=== PATIENT | female | born 1975 | race Caucasian/White ===

== ENCOUNTER 2016-07-11 21:56 | Emergency (ER) | payer OTHER ==
[~2016-07-11] VITALS: Ht 170.1 cm; Wt 86.2 kg
[~2016-07-11 21:56] MED LIST: AMARYL; AMARYL4 MG PO; BACTROBAN CREAM15 GM T; CELEXA10 MG PO; CIPRO500 MG PO; CIPROFLOXACIN500 MG PO; CLINDAMYCIN150 MG PO; DUONEB 3 MG/3 ML3 M1 INH; FLAGYL500 MG PO; HYDROCODONE BIT1 T11 PO; IBU-8800 MG PO; KEFLEX500 MG PO; LEVAQUIN750 M1 PO; LEVEMIR10 ML SC; LEVEMIR100 U/ML SC; METFORMIN500 MG PO; MOTRIN800 MG PO; NAPROSYN500 MG PO; NORCO 325 MG-51 TAB PO; NOVOLIN R100 U/ML; NOVOLOG10 ML SC; PERCOCET 325 MG1 TA5 PO; PERCOCET 325 MG1 TA6 PO; SEPTRA DS 800 M1 TA1 PO; SEPTRA DS1 TAB PO; TANZEUM30 MG SC; VALTREX1 GM PO; VICODIN 5/500 505 MG PO; VICODIN 500 MG-1 TAB PO; VISTARIL25 M2 PO; ZANTAC 150150 MG PO; ZOFRAN ODT4 MG SL
[2016-07-11 22:02] VITALS: BP 143/80
[2016-07-11 23:15] LABS: BASO % 0.3 % (0.0-1.0); EOS # 0.2 10*3/uL (0.0-0.4); EOS % 1.3 % (1.0-4.0); HEMATOCRIT 39.9 % (37.0-47.0); HEMOGLOBIN 13.4 g/dl (12.0-16.0); IG # 0.1 10*3/uL (0.0-0.1); LYMPH # 2.7 10*3/uL (1.3-4.4); MEAN CELL VOLUME 86.7 fl (81.0-99.0); MEAN CORPUSCULAR HGB 29.1 pg (27.0-31.0); MEAN CORPUSCULAR HGB CONC 33.6 g/dl (33.0-37.0); MEAN PLATELET VOLUME 9.4 fl (9.6-12.3); MONO # 0.6 10*3/uL (0.1-1.0); NEUT # 8.7 10*3/uL (2.3-7.9); NEUT % 70.9 % (47.0-73.0); PLATELET COUNT AUTOMATED 352 10*3/uL (130-400); RED CELL DISTRI WIDTH 13.2 % (0-14.5); WHITE BLOOD COUNT 12.3 10*3/uL (4.8-10.8)
[2016-07-11 23:27] LABS: BUN 12 mg/dl (7-24); C-REACTIVE PROTEIN 7.16 MG/DL (0-0.3); CARBON DIOXIDE 32 mmol/L (21-32); CHLORIDE 98 mmol/L (98-107); EST GLOM FILT AFRICAN AMERICAN > 60 ml/min; GLUCOSE 245 mg/dL (65-99); POTASSIUM 3.8 mmol/L (3.5-5.1); SODIUM 137 mmol/L (136-145)
[2016-07-11 23:31] LABS: HEMOGLOBIN A1c 11.4 % (4.8-5.6)
[2016-07-11] MEDS ORDERED: BACTRIM DS 8001 TA1 PO (23:51)
[2016-07-11] MEDS ORDERED: ULTRAM50 MG PO (23:51)
[2016-07-11] MEDS ORDERED: CLINDAMYCIN HC300 MG PO (23:51)
[2016-07-12] LABS: BILIRUBIN NEGATIVE (NEGATIVE); BLOOD TRACE-INTACT (NEGATIVE); CLARITY SL CLOUDY (CLEAR); COLOR YELLOW (YELLOW); GLUCOSE 3+ (NEGATIVE); KETONE TRACE (NEGATIVE); LEUKO ESTERASE NEGATIVE (NEGATIVE); NITRITE NEGATIVE (NEGATIVE); PH 5.5 (5.0-9.0); PROTEIN NEGATIVE (NEGATIVE)
[2016-07-12 00:33] LABS: EPITHELIAL CELLS 35-40
[2016-07-12 00:34] LABS: URINE REFLEX COMMENT YES (NO)
== END 2016-07-12 00:14 | disposition home or self-care (01) ==
LOC: ED 21:56
PROVIDERS: Emergency Medicine Emergency Medical Services
DX: L02.211 Cutaneous abscess of abdominal wall (principal); L03.311 Cellulitis of abdominal wall; E13.8 Other specified diabetes mellitus with unspecified complications; F17.200 Nicotine dependence, unspecified, uncomplicated; Z79.899 Other long term (current) drug therapy; Z79.4 Long term (current) use of insulin

== ENCOUNTER 2017-02-02 08:53 | Inpatient (IN) | payer OTHER ==
[~2017-02-02] VITALS: Ht 170.2 cm; Wt 94.1 kg
[~2017-02-02 08:53] MED LIST changes: +BACTRIM DS 8001 TA1 PO; +CLINDAMYCIN HC300 MG PO; -LEVEMIR10 ML SC; +LEVEMIR100 UNIT/1; +ULTRAM50 MG PO
[2017-02-02 08:54] VITALS: BP 156/80
[2017-02-02 09:32] LABS: BASO % 0.4 % (0.0-1.0); EOS # 0.2 10*3/uL (0.0-0.4); EOS % 1.9 % (1.0-4.0); HEMATOCRIT 41.5 % (37.0-47.0); HEMOGLOBIN 14.2 g/dl (12.0-16.0); LYMPH # 2.8 10*3/uL (1.3-4.4); LYMPH % 28.5 % (27.0-41.0); MEAN CELL VOLUME 84.9 fl (81.0-99.0); MEAN CORPUSCULAR HGB CONC 34.2 g/dl (33.0-37.0); MEAN PLATELET VOLUME 9.5 fl (9.6-12.3); MONO # 0.6 10*3/uL (0.1-1.0); MONO % 6.2 % (3.0-9.0); NEUT # 6.2 10*3/uL (2.3-7.9); NEUT % 62.8 % (47.0-73.0); PLATELET COUNT AUTOMATED 360 10*3/uL (130-400); RED BLOOD COUNT 4.89 10*6/uL (4.10-5.10); WHITE BLOOD COUNT 9.9 10*3/uL (4.8-10.8)
[2017-02-02 09:48] LABS: ALBUMIN 3.5 gm/dl (3.1-4.5); ALKALINE PHOSPHATASE 90 U/L (45-117); BETA-HCG, QUANT < 1.0 mIU/mL (1-3); BUN 10 mg/dl (7-24); CHLORIDE 105 mmol/L (98-107); CREATININE 0.66 mg/dL (0.55-1.02); LIPASE 75 U/L (73-393); POTASSIUM 3.3 mmol/L (3.5-5.1); SGOT/AST 13 IU/L (3-35); SGPT/ALT 24 U/L (12-78); SODIUM 140 mmol/L (136-145)
--- NOTE | 2017-02-02 10:15 | NUR ---
PT RESTING ELPIDIO, STATES THE PHENERGAN WORKED SLIGHTLY, STATES SHE IS STILL HAVING NAUSEA.
--- NOTE | 2017-02-02 10:46 | NUR ---
ADMINSTERED ZOFRAN PER ORDER FOR NAUSEA. PHENERGAN INEFFECTIVE.
[2017-02-02 12:24] LABS: BILIRUBIN NEGATIVE (NEGATIVE); BLOOD TRACE-INTACT (NEGATIVE); CLARITY CLOUDY (CLEAR); COLOR YELLOW (YELLOW); GLUCOSE 3+ (NEGATIVE); KETONE NEGATIVE (NEGATIVE); LEUKO ESTERASE NEGATIVE (NEGATIVE); NITRITE NEGATIVE (NEGATIVE); SPECIFIC GRAVITY 1.015 (1.005-1.030); UROBILINOGEN 0.2 E.U./dl (0.2-1.0)
[2017-02-02 12:35] LABS: BACTERIA 2+; EPITHELIAL CELLS 30-40
[2017-02-02 12:36] LABS: WBC 21-30 wbc/hpf (0-5)
[2017-02-02 13:00] VITALS: BP 129/67
--- NOTE | 2017-02-02 13:15 | NUR ---
MSADMTime: N A 38 year old F admitted to 4E under services of JULIANA NAQVI DO. Pt. arrived via bed from ER. Chief complaint: ABDOMINAL PAIN. BRIANNE RAPP
[2017-02-02 16:00] VITALS: BP 105/46
--- NOTE | 2017-02-02 16:10 | NUR ---
SPEECH PATHOLOGY Screening completed and speech pathology services are not indicated at this time. There are no acute receptive/expressive difficulties. No difficulty swallowing is reported. This dept. will remain available should future needs arise. ERICH PEREZ MSCCC-WOOD CARVING MACHINE OPERATOR
--- NOTE | 2017-02-02 16:25 | NUR ---
Dr. Eller in to [facility].
[2017-02-02 20:00] VITALS: BP 116/63
--- NOTE | 2017-02-02 20:00 | NUR ---
PATIENT ADVISED OF DIET STATUS OF CLEAR LIQUIDS. [facility] AND HAD 2 DIFFERENT TYPES OF CRACKERS IN ROOM THAT SHE HAD BEEN EATING. HAD ASKED THE PATIENT IF THE CRACKERS COULD BE PUT AWAY, OFF OF THE TRAY TABLE. PATIENT RESPONDED WITH A NO.
--- NOTE | 2017-02-02 21:55 | NUR ---
PATIENT STATES THAT SHE LAST VOMITED AT 0830 THIS AM. DENIES NAUSEA AT PRESENT TIME.
[2017-02-03] VITALS: BP 115/69
[2017-02-03 08:00] VITALS: BP 116/62
[2017-02-03 08:00] LABS: BASO % 0.5 % (0.0-1.0); EOS # 0.2 10*3/uL (0.0-0.4); EOS % 1.9 % (1.0-4.0); HEMATOCRIT 39.8 % (37.0-47.0); HEMOGLOBIN 13.2 g/dl (12.0-16.0); LYMPH # 2.4 10*3/uL (1.3-4.4); LYMPH % 31.1 % (27.0-41.0); MEAN CELL VOLUME 87.3 fl (81.0-99.0); MEAN CORPUSCULAR HGB 28.9 pg (27.0-31.0); MEAN CORPUSCULAR HGB CONC 33.2 g/dl (33.0-37.0); MEAN PLATELET VOLUME 9.9 fl (9.6-12.3); MONO # 0.5 10*3/uL (0.1-1.0); NEUT # 4.6 10*3/uL (2.3-7.9); PLATELET COUNT AUTOMATED 307 10*3/uL (130-400); RED BLOOD COUNT 4.56 10*6/uL (4.10-5.10); RED CELL DISTRI WIDTH 13.2 % (0-14.5); WHITE BLOOD COUNT 7.7 10*3/uL (4.8-10.8)
[2017-02-03 08:08] LABS: INTERNATIONAL NORM RATIO 0.9 (2.0-3.5)
[2017-02-03 08:19] LABS: ALBUMIN 2.8 gm/dl (3.1-4.5); ALKALINE PHOSPHATASE 78 U/L (45-117); BUN 7 mg/dl (7-24); CHLORIDE 107 mmol/L (98-107); POTASSIUM 3.5 mmol/L (3.5-5.1); SGOT/AST 15 IU/L (3-35); SGPT/ALT 27 U/L (12-78); SODIUM 140 mmol/L (136-145); TOTAL PROTEIN 6.5 gm/dL (6.4-8.2)
[2017-02-03 08:25] LABS: CHOLESTEROL 123 mg/dL (<200); CREATININE 0.61 mg/dL (0.55-1.02); FREE T4 1.09 ng/dl (0.76-1.46); HDL CHOLESTEROL 43 mg/dl (40-60); LDL CHOLESTEROL 65 mg/dL (9-159); PHOSPHOROUS 2.2 mg/dL (2.5-4.9); TRIGLYCERIDES 74 mg/dl (<150); VLDL CHOLESTEROL 15 mg/dL (6-40)
--- NOTE | 2017-02-03 08:30 | NUR ---
Patient resting quietly with no c/o discomfort. Respirations easy and regular. Vital signs stable. No overt distress. ETIENNE HARRIS R
--- NOTE | 2017-02-03 09:00 | NUR ---
Inverform Machine Operator in to talk to patient. Patient states lives at home with alone. There are few steps in the home. Physician: moshe damico [facility] [place] [facility]: none Patient's level of ADLs: INDEPENDENT Patient has working utilities: all working DME: no Follow-up physician's appointment after d/c: will be made by hospitalist nurse director upon discharge Does patient want to access PORTAL?: no Discharge plan discussed with patient, patient lives at home alone, is independent in adls and ambulation, patient states she will be going home when able and denies any home need. SUJATHA HAMILTON
[2017-02-03 09:45] LABS: VITAMIN D, 25-HYDROXY 30.7 ng/mL (30-100)
[2017-02-03] MEDS ORDERED: NEURONTIN400 MG PO (09:55)
[2017-02-03] MEDS ORDERED: LEVEMIR100 UNIT/1 SC (10:58)
[2017-02-03 12:00] VITALS: BP 123/70
--- NOTE | 2017-02-03 14:54 | NUR ---
Discharge instructions reviewed with patient/family. Patient receptive and verbalizes understanding. Follow-up care arranged. Written instructions given to patient/family. ETIENNE HARRIS
== END 2017-02-03 14:54 | disposition home or self-care (01) | DRG 391 ==
LOC: ED 08:53 → 4E 10:32 → EDHOLD 10:32 → 4E 11:56
PROVIDERS: Emergency Medicine; Hospitalist; ADMIT Internal Medicine
DX: K52.9 Noninfective gastroenteritis and colitis, unspecified (principal); E43 Unspecified severe protein-calorie malnutrition; E11.9 Type 2 diabetes mellitus without complications; E87.6 Hypokalemia; R00.0 Tachycardia, unspecified; Z79.4 Long term (current) use of insulin; Z79.84 Long term (current) use of oral hypoglycemic drugs; Z79.899 Other long term (current) drug therapy; Z90.49 Acquired absence of other specified parts of digestive tract; Z83.3 Family history of diabetes mellitus; Z80.3 Family history of malignant neoplasm of breast; Z82.49 Family history of ischemic heart disease and other diseases of the circulatory system; Z68.31 Body mass index [BMI] 31.0-31.9, adult

== ENCOUNTER 2017-04-22 21:49 | Emergency (ER) | payer OTHER ==
[~2017-04-22] VITALS: Ht 170.1 cm; Wt 86.2 kg
[~2017-04-22 21:49] MED LIST changes: +LEVEMIR100 UNIT/1 SC; +NEURONTIN400 MG PO
[2017-04-22 21:53] VITALS: BP 143/81
[2017-04-22] MEDS ORDERED: ZITHROMAX250 MG PO (23:51)
== END 2017-04-23 00:24 | disposition home or self-care (01) ==
LOC: ED 21:49
DX: J02.9 Acute pharyngitis, unspecified (principal); Z98.890 Other specified postprocedural states; Z90.49 Acquired absence of other specified parts of digestive tract; Z79.899 Other long term (current) drug therapy; Z79.4 Long term (current) use of insulin

== ENCOUNTER → 2017-06-03 | Outpatient (CLI) | payer OTHER ==
[~2017-06-03] MED LIST changes: +ZITHROMAX250 MG PO
[2017-06-03 08:50] LABS: BASO % 0.3 % (0.0-1.0); EOS # 0.2 10*3/uL (0.0-0.4); EOS % 2.7 % (1.0-4.0); HEMATOCRIT 43.5 % (37.0-47.0); HEMOGLOBIN 14.3 g/dl (12.0-16.0); LYMPH # 1.8 10*3/uL (1.3-4.4); LYMPH % 20.5 % (27.0-41.0); MEAN CELL VOLUME 86.1 fl (81.0-99.0); MEAN CORPUSCULAR HGB 28.3 pg (27.0-31.0); MEAN CORPUSCULAR HGB CONC 32.9 g/dl (33.0-37.0); MEAN PLATELET VOLUME 9.9 fl (9.6-12.3); MONO # 0.4 10*3/uL (0.1-1.0); NEUT # 6.2 10*3/uL (2.3-7.9); NEUT % 71.2 % (47.0-73.0); PLATELET COUNT AUTOMATED 316 10*3/uL (130-400); RED BLOOD COUNT 5.05 10*6/uL (4.10-5.10); WHITE BLOOD COUNT 8.7 10*3/uL (4.8-10.8)
[2017-06-03 09:01] LABS: ALBUMIN 3.5 gm/dl (3.1-4.5); ALKALINE PHOSPHATASE 99 U/L (45-117); BUN 12 mg/dl (7-24); CHLORIDE 103 mmol/L (98-107); CHOLESTEROL 182 mg/dL (<200); CREATININE 0.73 mg/dL (0.55-1.02); HDL CHOLESTEROL 50 mg/dl (40-60); LDL CHOLESTEROL 115 mg/dL (9-159); POTASSIUM 4.2 mmol/L (3.5-5.1); SGOT/AST 15 IU/L (3-35); SGPT/ALT 28 U/L (12-78); SODIUM 138 mmol/L (136-145); TOTAL PROTEIN 7.9 gm/dL (6.4-8.2); TRIGLYCERIDES 84 mg/dl (<150); VLDL CHOLESTEROL 17 mg/dL (6-40)
== END | disposition home or self-care (01) ==
LOC: LAB 08:16 → RAD 08:16
PROVIDERS: Nurse Practitioner Primary Care
DX: M79.642 Pain in left hand (principal); M79.645 Pain in left finger(s)

== ENCOUNTER → 2017-06-24 | Outpatient (CLI) | payer OTHER | END | disposition home or self-care (01) | LOC: MAMMO 07:34 | DX: Z12.31 Encounter for screening mammogram for malignant neoplasm of breast (principal) ==

== ENCOUNTER → 2018-07-08 | Outpatient (CLI) | payer OTHER ==
[~2018-07-08] MED LIST changes: +ADMELOG100 UNIT/1 SQ; +BASAG SOL SQ; +DOXYCYCLINE100 M3 PO; +FOLGARD TABLET1 EACH PO; +GLUCOPHAGE1000 MG PO; -METFORMIN500 MG PO; +TRULICITY1.5 MG/0.5 SC
== END | disposition home or self-care (01) ==
LOC: RAD 08:27
DX: K59.00 Constipation, unspecified (principal)

== ENCOUNTER → 2018-09-30 | Outpatient (CLI) | payer OTHER | END | disposition home or self-care (01) | LOC: US 11:19 | DX: R10.9 Unspecified abdominal pain (principal); E11.9 Type 2 diabetes mellitus without complications; Z90.49 Acquired absence of other specified parts of digestive tract ==

== ENCOUNTER → 2018-10-11 | Outpatient (CLI) | payer OTHER | END | disposition home or self-care (01) | LOC: MAMMO 01:11 | DX: Z12.31 Encounter for screening mammogram for malignant neoplasm of breast (principal) ==

== ENCOUNTER 2018-10-13 11:05 | Inpatient (IN) | payer OTHER ==
[~2018-10-13] VITALS: Ht 170.1 cm; Wt 94.0 kg
--- NOTE | ~2018-10-13 | PROC NOTE ---
[place], [place] PROCEDURE NOTE NAME[id number] UN[facility] #: [id number] ROOM: [facility] DOCTOR: FREDDY BARNARD MD BIRTHDATE: [birth year] DOS: 10/14/2018 PREOPERATIVE DIAGNOSIS: Anterior abdominal wall abscess. POSTOPERATIVE DIAGNOSIS: Anterior abdominal wall abscess. PROCEDURE: Incision and drainage of anterior abdominal wall abscess. SURGEON: Freddy Barnard MD SKILLED NURSING FACILITIES PROFESSIONAL: ARCHANA. ANESTHESIA: MAC with local (3 mL of 1% plain lidocaine). INDICATIONS: This is a 43-year-old lady admitted with an anterior abdominal wall abscess who is here for the above-mentioned procedure. The procedure and its complications were explained to the patient in detail preoperatively. Complications that were discussed included but were not limited to bleeding, infection, and damage to lying vital structures. She agreed to proceed. DESCRIPTION OF PROCEDURE: After identifying the patient, the patient was brought to the operating suite and placed in the supine position. After time-out procedure was called, IV sedation was administered by the anesthesia team and the parts were then painted and draped in the usual sterile fashion. Local anesthesia was infiltrated and an incision was made and deepened until the abscess cavity was entered. Specimen of pus was sent for culture and sensitivity. The abscess cavity was cleared of all the contents and saline was used for irrigation. Thereafter, the abscess cavity was packed with the help of 1/4 inch iodoform pack and a dressing was placed. The patient tolerated the procedure well and was brought back to the recovery room in stable fashion. There were no complications. Dr. Freddy Barnard, the attending surgeon, was present throughout the operating case. Freddy Barnard MD CM:PROCNOTE:PROCEDURE NOTE [id number] FREDDY BARNARD MD
[~2018-10-13 11:05] MED LIST changes: -ADMELOG100 UNIT/1 SQ; -BASAG SOL SQ; -DOXYCYCLINE100 M3 PO; -FOLGARD TABLET1 EACH PO; -TRULICITY1.5 MG/0.5 SC
[2018-10-13 11:06] VITALS: BP 123/66
[2018-10-13 11:46] LABS: BASO # 0.1 10*3/uL (0.0-0.1); BASO % 0.5 % (0.0-1.0); EOS # 0.3 10*3/uL (0.0-0.4); HEMATOCRIT 38.7 % (37.0-47.0); HEMOGLOBIN 12.3 g/dl (12.0-16.0); LYMPH % 19.2 % (27.0-41.0); MEAN CELL VOLUME 90.6 fl (81.0-99.0); MEAN CORPUSCULAR HGB 28.8 pg (27.0-31.0); MEAN CORPUSCULAR HGB CONC 31.8 g/dl (33.0-37.0); MEAN PLATELET VOLUME 9.2 fl (9.6-12.3); MONO # 0.6 10*3/uL (0.1-1.0); MONO % 6.1 % (3.0-9.0); NEUT # 7.4 10*3/uL (2.3-7.9); NEUT % 70.8 % (47.0-73.0); PLATELET COUNT AUTOMATED 440 10*3/uL (130-400); RED BLOOD COUNT 4.27 10*6/uL (4.10-5.10); RED CELL DISTRI WIDTH 13.7 % (0-14.5); WHITE BLOOD COUNT 10.4 10*3/uL (4.8-10.8)
[2018-10-13 12:01] LABS: ALBUMIN 3.1 gm/dl (3.1-4.5); ALKALINE PHOSPHATASE 88 U/L (45-117); BUN 13 mg/dl (7-24); CHLORIDE 104 mmol/L (98-107); LIPASE 69 U/L (73-393); POTASSIUM 4.7 mmol/L (3.5-5.1); SGOT/AST 12 IU/L (3-35); SGPT/ALT 22 U/L (12-78); SODIUM 141 mmol/L (136-145); TOTAL PROTEIN 7.6 gm/dL (6.4-8.2)
[2018-10-13 13:30] VITALS: BP 122/74
[2018-10-13 14:25] VITALS: BP 128/69
--- NOTE | 2018-10-13 14:25 | NUR ---
A 43, admitted to 5E, under the services of BHARATHI Yeager DO with a diagnosis of ABCESS, CELLULITIS. Chief complaint is ABCESS TO ABDOMEN X1 WK. Patient arrived via stretcher from ER. Monitor applied. Initial assessment completed. Vital signs taken and recorded. BHARATHI YEAGER DO notified of admission to the unit. Orders received. See assessment for past medical history, medications and allergies. Patient and/or family oriented to unit. [address] visitation policy reviewed. Clothing/patient valuable form completed. EDER VIEIRA
[2018-10-13 14:39] VITALS: BP 128/69
[2018-10-13] MEDS ORDERED: FOLGARD TABLET1 EACH PO (14:40)
[2018-10-13] MEDS ORDERED: ADMELOG100 UNIT/1 SQ (14:44)
[2018-10-13] MEDS ORDERED: BASAG SOL SQ (14:46)
[2018-10-13] MEDS ORDERED: TRULICITY1.5 MG/0.5 SC (14:51)
--- NOTE | 2018-10-13 14:53 | NUR ---
MEDS RECONCILED WITH MED CLAIM HX AND WITH PT AT BEDSIDE.
--- NOTE | 2018-10-13 15:32 | NUR ---
NEW CONSULT CALLED TO DR ROD. PATIENT TO BE NPO AFTER MIDNIGHT.
--- NOTE | 2018-10-13 16:15 | NUR ---
DR CASTILLO CALLED-PATIENT HOME MEDS UP TO DATE.
--- NOTE | 2018-10-13 16:50 | NUR ---
DR CASTILLO CALLED WITH CRITICAL LACTIC 3.3. PATIENT RECEIVING NS BOLUS AT THIS TIME. NO NEW ORDERS RECEIVED.
--- NOTE | 2018-10-13 17:08 | NUR ---
PATIENT REQUESTING PAIN MEDICATION FOR ABDOMINAL PAIN RATED 9/10 ON 0/10 SCALE. MORPHINE ADMINISTERED PRESCRIBED. WILL MONITOR FOR EFFECTIVENESS.
--- NOTE | 2018-10-13 18:04 | NUR ---
PATIENT STATES THAT MORPHINE WAS LITTLE EFFECTIVE ON HER ABDOMINAL PAIN. STILL RATES 7/10 ON 0/10 SCALE. NORCO ADMINISTERED PRESCRIBED. WILL MONITOR FOR EFFECTIVENESS.
--- NOTE | 2018-10-13 19:04 | NUR ---
PATIENT STATES THAT NORCO WAS EFFECTIVE FOR ABDOMINAL PAIN. WILL MONITOR.
[2018-10-13 20:00] VITALS: BP 112/69
[2018-10-13 20:41] LABS: BILIRUBIN NEGATIVE (NEGATIVE); BLOOD NEGATIVE (NEGATIVE); CLARITY CLEAR (CLEAR); COLOR YELLOW (YELLOW); GLUCOSE NEGATIVE (NEGATIVE); KETONE NEGATIVE (NEGATIVE); LEUKO ESTERASE NEGATIVE (NEGATIVE); NITRITE NEGATIVE (NEGATIVE); PH 5.5 (5.0-9.0); UROBILINOGEN 0.2 E.U./dl (0.2-1.0)
[2018-10-13 20:53] LABS: BACTERIA 1+
--- NOTE | 2018-10-13 22:30 | NUR ---
PATIENT MEDICATED FOR PAIN, DRESSING CHANGE PERFORMED, PURULENT DRAINAGE NOTED. PATIENT TOLERATED WELL.
[2018-10-14] VITALS (8 sets, daily range): BP systolic 93–131; BP diastolic 49–73
--- NOTE | 2018-10-14 06:03 | NUR ---
TAYLOR WARREN [id number] Please refer to the physician's history and physical for past medical history, comorbid conditions, and allergies. Diagnosis: ABCESS CELLULITIS Edwardo Score: 19,LOW OR NO RISK WOUND DESCRIPTIONS: Wound Number: 1 Location of the wound: mid abdomen to right right of umbilicus Type of wound: abscess Thickness: Full Size: 1.3cm x 2.6cm x 1.8cm Tunneling: none Undermining: none Sinus Tract: none Presence of Exudate: Serosanguineous Amount: Moderate Color: Brown, yellow, red Odor: None Periwound Skin Appearance: Erythema 5.0cm x 10.5cm Wound edges: approximated Pain (associated with wound): tender to touch How does patient state this happened? pt stated this started last wednesday and saw her pcp who gave her antibiotic and she stated it opened a couple days ago and started draining yellow, green and red. 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 Surface the patient is resting on: Isoflex SKIN PREVENTION RECOMMENDATION: 1. Pressure redistribution support surface as appropriate 2. Elevate heels 3. Remove boots/TEDS every shift and reapply 4. Head of bed 30 degrees as tolerated 5. Assess nutrition and hydration 6. Manage moisture 7. Avoid the use of containment devices while in bed 8. Use absorptive products on surfaces limit layers of linens on bed 9. Turn and reposition every 1-2 hours in bed and every 1 hour in chair as tolerated 10. Weight shifts every 15 minutes while up in chair 11. Offloading with pillows or device to keep heels elevated off bed 12. Monitor skin at least every shift 13. Inspect under medical devices twice a day WOUND TREATMENT RECOMMENDATIONS: Dressing change: Cleanse mid abdomen to right right of umbilicus with nss and apply dsd daily and prn for soiling. Await post op wound care orders after surgery today with Dr. Barnard. Patient stated that her mother is able to care for this area once she is discharged. She stated if she needs a follow up appointment if she gets surgery she will follow up when discharged.
[2018-10-14 06:20] LABS: BASO # 0.1 10*3/uL (0.0-0.1); BASO % 0.4 % (0.0-1.0); EOS # 0.3 10*3/uL (0.0-0.4); EOS % 2.4 % (1.0-4.0); HEMATOCRIT 38.2 % (37.0-47.0); HEMOGLOBIN 12.1 g/dl (12.0-16.0); LYMPH # 3.2 10*3/uL (1.3-4.4); MEAN CELL VOLUME 92.5 fl (81.0-99.0); MEAN CORPUSCULAR HGB 29.3 pg (27.0-31.0); MEAN CORPUSCULAR HGB CONC 31.7 g/dl (33.0-37.0); MEAN PLATELET VOLUME 9.4 fl (9.6-12.3); MONO # 0.8 10*3/uL (0.1-1.0); MONO % 6.8 % (3.0-9.0); PLATELET COUNT AUTOMATED 473 10*3/uL (130-400); RED BLOOD COUNT 4.13 10*6/uL (4.10-5.10); RED CELL DISTRI WIDTH 13.7 % (0-14.5); WHITE BLOOD COUNT 11.3 10*3/uL (4.8-10.8)
[2018-10-14 06:25] LABS: ALBUMIN 2.8 gm/dl (3.1-4.5); ALKALINE PHOSPHATASE 86 U/L (45-117); BUN 10 mg/dl (7-24); CHLORIDE 106 mmol/L (98-107); CREATININE 0.64 mg/dL (0.55-1.02); PHOSPHOROUS 4.2 mg/dL (2.5-4.9); SGOT/AST 14 IU/L (3-35); SGPT/ALT 21 U/L (12-78); SODIUM 143 mmol/L (136-145)
[2018-10-14 06:27] LABS: POTASSIUM 3.6 mmol/L (3.5-5.1)
--- NOTE | 2018-10-14 08:08 | NUR ---
Dr. Herrera notified of wound care recommendations.
--- NOTE | 2018-10-14 10:17 | NUR ---
1000 MEDS HELD DUE TO NPO STATUS.
--- NOTE | 2018-10-14 11:18 | NUR ---
TO SURGERY FOR AN I&D.
--- NOTE | 2018-10-14 13:28 | NUR ---
MORPHINE 2MG IV GIVEN PER PATIENT REQUEST FOR ABDOMINAL PAIN.
--- NOTE | 2018-10-14 14:04 | NUR ---
Conventions Reservationist in to talk to patient. Patient states lives at HOME with SONS. There are NO steps in the home. Physician: PIETER PASCAL Pharmacy: [facility] health services: NONE Patient's level of ADLs: INDEPENDENT Patient has working utilities: YES DME: NONE Follow-up physician's appointment after d/c: WILL BE MADE BY HOSPITALIST NURSE DIRECTOR ON DISCHARGE Does patient want to access PORTAL?: NO Discharge plan PT STATES SHE LIVES AT HOME WITH HER SONS AND IS INDEPENDENT IN HER CARE. DENIES SHE WILL HAVE NEEDS ON DISCHARGE. WILL CONTINUE TO FOLLOW. STATES HE WILL HAVE A RIDE HOME.. CHRIS SAUCEDO
--- NOTE | 2018-10-14 14:30 | NUR ---
PATIENT SITTING UP IN BED EATING. NO FURTHER COMPLAINTS OF PAIN. MORPHINE EFFECTIVE.
--- NOTE | 2018-10-14 20:03 | NUR ---
PT C/O ABDOMEN PAIN 8/10 MORPHINE GIVEN ORDERED. SEE EMAR
--- NOTE | 2018-10-14 23:24 | NUR ---
PT C/O OF ABDOMEN PAIN 08/22. NORCO GIVEN ORDERED. SEE EMAR
--- NOTE | 2018-10-14 23:25 | NUR ---
MORPHINE EFFECTIVE PER PT.
[2018-10-15] VITALS: BP 126/63
--- NOTE | 2018-10-15 00:25 | NUR ---
NORCO EFFECTIVE PER PT
--- NOTE | 2018-10-15 03:11 | NUR ---
24 HR chart check completed.
--- NOTE | 2018-10-15 03:47 | NUR ---
TYLENOL GIVEN FOR 100.2 TEMP AT THIS TIME. SEE EMAR
--- NOTE | 2018-10-15 04:06 | NUR ---
24 HR chart check completed.
--- NOTE | 2018-10-15 05:36 | NUR ---
TEMP 98.0. TYLENOL EFFECTIVE.
--- NOTE | 2018-10-15 06:19 | NUR ---
pt c/o abdomen pain 8/10 norco given at this time.
--- NOTE | 2018-10-15 06:36 | NUR ---
PT. IN CONTACT ISOLATION FOR MRSA WOUND.
--- NOTE | 2018-10-15 06:45 | NUR ---
NORCO EFFECTIVE. PT OBSERVED RESTING IN BED WITH EYES CLOSED.
[2018-10-15 07:11] LABS: BASO % 0.4 % (0.0-1.0); EOS # 0.2 10*3/uL (0.0-0.4); EOS % 2.1 % (1.0-4.0); HEMATOCRIT 34.8 % (37.0-47.0); HEMOGLOBIN 11.3 g/dl (12.0-16.0); LYMPH # 3.2 10*3/uL (1.3-4.4); LYMPH % 30.4 % (27.0-41.0); MEAN CELL VOLUME 90.6 fl (81.0-99.0); MEAN CORPUSCULAR HGB 29.4 pg (27.0-31.0); MEAN CORPUSCULAR HGB CONC 32.5 g/dl (33.0-37.0); MONO # 0.6 10*3/uL (0.1-1.0); MONO % 6.1 % (3.0-9.0); NEUT # 6.3 10*3/uL (2.3-7.9); NEUT % 60.7 % (47.0-73.0); PLATELET COUNT AUTOMATED 421 10*3/uL (130-400); RED BLOOD COUNT 3.84 10*6/uL (4.10-5.10); RED CELL DISTRI WIDTH 13.7 % (0-14.5); WHITE BLOOD COUNT 10.5 10*3/uL (4.8-10.8)
[2018-10-15 07:30] LABS: BUN 7 mg/dl (7-24); CHLORIDE 108 mmol/L (98-107); CREATININE 0.73 mg/dL (0.55-1.02); SODIUM 142 mmol/L (136-145)
[2018-10-15 08:00] VITALS: BP 131/70
--- NOTE | 2018-10-15 10:07 | NUR ---
PATIENT MEDICATED WITH PRN IV MORPHINE FOR ABDOMINAL WOUND PAIN.
--- NOTE | 2018-10-15 10:18 | NUR ---
REQUESTED PAIN MEDICATION ORDERED . RATES PAIN SHARP IN ABDOMINAL AREA. 08/22
--- NOTE | 2018-10-15 11:05 | NUR ---
RESTING IN BED. MEDICATION APPEARS EFFECTIVE
--- NOTE | 2018-10-15 11:13 | NUR ---
PRN IV MORPHINE EFFECTIVE; PATIENT SLEEPING W/ NO S/S PAIN.
[2018-10-15 12:00] VITALS: BP 128/64
[2018-10-15 12:05] LABS: ACID FAST SPEC PROCESSING Tissue Grinding (.)
--- NOTE | 2018-10-15 13:55 | NUR ---
MEDICATED WITH PRN PO NORCO FOR ABDOMINAL INCISION PAIN.
--- NOTE | 2018-10-15 14:45 | NUR ---
PRN PO NORCO EFFECTIVE, PER PATIENT.
[2018-10-15 16:00] VITALS: BP 130/75
--- NOTE | 2018-10-15 18:11 | NUR ---
MEDICATED WITH PRN PO NORCO FOR ABDOMINAL INCISION PAIN.
[2018-10-15 20:00] VITALS: BP 122/73
--- NOTE | 2018-10-15 20:00 | NUR ---
RESTING IN BED WITH NO DISTRESS NOTED. RESPIRATIONS EASY. LUNGS DIMINISHED, CLEAR. PULSE OX 93% RA. DRESSING DRY AN INTACT TO ABD. OFFERED AND EDUCATED REGARDING TEDS, DECLINED. CALL LIGHT WITHIN REACH. NO VOICED COMPLAINTS
--- NOTE | 2018-10-15 20:30 | NUR ---
24 HR chart check completed.
--- NOTE | 2018-10-15 21:28 | NUR ---
REQUESTED AND RECEIVED MORPHINE AND RESTORIL PER PRN ORDER TO ASSIST WITH PAIN TO ABD INCISION RATING AN 8 AND TO ASSIST WITH SLEEP. CALL LIGHT WITHIN REACH. WILL MONITOR FOR EFFECTIVENESS
--- NOTE | 2018-10-15 21:55 | NUR ---
DULCOLAX ADMINISTERED FOR NO BM X 2 DAYS.
--- NOTE | 2018-10-15 22:00 | NUR ---
BSG 158, DECLINED COVERAGE. WILL RECHECK IN AM
--- NOTE | 2018-10-15 23:00 | NUR ---
EARLIER MEDS APPEAR EFFECTIVE. RESTING WITH EYES CLOSED. RESPIRATIONS EASY. CALL LIGHT WITHIN REACH
[2018-10-16 00:01] VITALS: BP 121/67
--- NOTE | 2018-10-16 00:30 | NUR ---
SLEEPING. RESPIRATIONS EASY. VSS. CALL LIGHT WITHIN REACH
[2018-10-16 05:52] LABS: BASO # 0.1 10*3/uL (0.0-0.1); BASO % 0.6 % (0.0-1.0); EOS # 0.3 10*3/uL (0.0-0.4); EOS % 3.8 % (1.0-4.0); HEMATOCRIT 36.2 % (37.0-47.0); HEMOGLOBIN 11.6 g/dl (12.0-16.0); LYMPH # 2.9 10*3/uL (1.3-4.4); LYMPH % 32.6 % (27.0-41.0); MEAN CELL VOLUME 90.7 fl (81.0-99.0); MEAN CORPUSCULAR HGB 29.1 pg (27.0-31.0); MEAN PLATELET VOLUME 9.2 fl (9.6-12.3); MONO # 0.6 10*3/uL (0.1-1.0); MONO % 6.1 % (3.0-9.0); NEUT # 5.1 10*3/uL (2.3-7.9); NEUT % 56.3 % (47.0-73.0); PLATELET COUNT AUTOMATED 393 10*3/uL (130-400); RED BLOOD COUNT 3.99 10*6/uL (4.10-5.10); RED CELL DISTRI WIDTH 13.3 % (0-14.5)
[2018-10-16 06:03] LABS: BUN 8 mg/dl (7-24); CHLORIDE 104 mmol/L (98-107); POTASSIUM 4.6 mmol/L (3.5-5.1); SODIUM 140 mmol/L (136-145)
--- NOTE | 2018-10-16 06:38 | NUR ---
REQUESTED AND RECEIVED NORCO PER PRN ORDER FOR COMPLAINTS OF PAIN RATING A 5 TO ABD INCISION. CALL LIGHT WITHIN REACH. WILL MONITOR FOR EFFECTIVENESS
[2018-10-16 08:00] VITALS: BP 119/66
--- NOTE | 2018-10-16 09:22 | NUR ---
MEDICATED WITH PRN PO DULCOLAX FOR CONSTIPATION
[2018-10-16] MEDS ORDERED: DOXYCYCLINE100 M3 PO (09:41)
[2018-10-16 12:00] VITALS: BP 109/56
--- NOTE | 2018-10-16 13:17 | NUR ---
Discharge instructions reviewed with patient/family. Patient receptive and verbalizes understanding. Follow-up care arranged. Written instructions given to patient/family. JOSETTE MEHTA
--- NOTE | 2018-10-16 13:20 | NUR ---
PATIENT DISCHARGED TO FRONT LOBBY BY WHEELCHAIR, ACCOMPANIED BY [facility], FOR TRANSPORT HOME BY PRIVATE VEHICLE WITH FAMILY.
== END 2018-10-16 13:20 | disposition home or self-care (01) | DRG 580 ==
LOC: ED 11:05 → EDHOLD 13:37 → 5E 13:37
PROVIDERS: Internal Medicine; Physician Assistant; Student in an Organized Health Care Education/Training Program; Surgery; ADMIT Internal Medicine
PROC: 0W9F0ZZ Drainage of Abdominal Wall, Open Approach (ICD-10-PCS; principal; 2018-10-14)
DX: L02.211 Cutaneous abscess of abdominal wall (principal); E87.2 Acidosis; E66.9 Obesity, unspecified; L03.316 Cellulitis of umbilicus; E11.65 Type 2 diabetes mellitus with hyperglycemia; F41.9 Anxiety disorder, unspecified; B95.62 Methicillin resistant Staphylococcus aureus infection as the cause of diseases classified elsewhere; F32.9 Major depressive disorder, single episode, unspecified; E55.9 Vitamin D deficiency, unspecified; D64.9 Anemia, unspecified; Z86.14 Personal history of Methicillin resistant Staphylococcus aureus infection; Z90.49 Acquired absence of other specified parts of digestive tract; Z98.891 History of uterine scar from previous surgery; Z82.49 Family history of ischemic heart disease and other diseases of the circulatory system; Z83.3 Family history of diabetes mellitus; Z80.3 Family history of malignant neoplasm of breast; Z79.899 Other long term (current) drug therapy; Z79.4 Long term (current) use of insulin; Z68.32 Body mass index [BMI] 32.0-32.9, adult

== ENCOUNTER 2018-11-12 18:44 | Emergency (ER) | payer OTHER ==
[~2018-11-12] VITALS: Ht 170.1 cm; Wt 86.2 kg
[~2018-11-12 18:44] MED LIST changes: +ADMELOG100 UNIT/1 SQ; +BASAG SOL SQ; +DOXYCYCLINE100 M3 PO; +FOLGARD TABLET1 EACH PO; +TRULICITY1.5 MG/0.5 SC
[2018-11-12 18:46] VITALS: BP 134/70
== END 2018-11-12 19:52 | disposition home or self-care (01) ==
LOC: ED 18:44
DX: S93.402A Sprain of unspecified ligament of left ankle, initial encounter (principal); Z79.2 Long term (current) use of antibiotics; Z79.4 Long term (current) use of insulin; Z90.49 Acquired absence of other specified parts of digestive tract; Z79.899 Other long term (current) drug therapy; X50.1XXA Overexertion from prolonged static or awkward postures, initial encounter; Y93.89 Activity, other specified; Y92.488 Other paved roadways as the place of occurrence of the external cause; Y99.8 Other external cause status

== ENCOUNTER 2018-12-25 13:12 | Inpatient (IN) | payer OTHER ==
[~2018-12-25] VITALS: Ht 170.1 cm; Wt 91.3 kg
[2018-12-25 13:15] VITALS: BP 148/82
--- NOTE | 2018-12-25 13:30 | NUR ---
MUCKER OPERATOR TIARA IN PT'S ROOM APPLYING DRESSING TO RIGHT SECOND TOE.
[2018-12-25 13:51] LABS: BASO % 0.2 % (0.0-1.0); EOS # 0.1 10*3/uL (0.0-0.4); EOS % 0.5 % (1.0-4.0); HEMATOCRIT 36.9 % (37.0-47.0); LYMPH # 1.5 10*3/uL (1.3-4.4); LYMPH % 10.7 % (27.0-41.0); MEAN CELL VOLUME 90.2 fl (81.0-99.0); MEAN CORPUSCULAR HGB 29.3 pg (27.0-31.0); MEAN CORPUSCULAR HGB CONC 32.5 g/dl (33.0-37.0); MEAN PLATELET VOLUME 9.2 fl (9.6-12.3); MONO # 0.7 10*3/uL (0.1-1.0); MONO % 5.2 % (3.0-9.0); NEUT # 11.7 10*3/uL (2.3-7.9); NEUT % 82.8 % (47.0-73.0); PLATELET COUNT AUTOMATED 436 10*3/uL (130-400); RED BLOOD COUNT 4.09 10*6/uL (4.10-5.10); RED CELL DISTRI WIDTH 13.1 % (0-14.5); WHITE BLOOD COUNT 14.2 10*3/uL (4.8-10.8)
[2018-12-25 14:07] LABS: ALBUMIN 2.9 gm/dl (3.1-4.5); ALKALINE PHOSPHATASE 120 U/L (45-117); BUN 10 mg/dl (7-24); CHLORIDE 99 mmol/L (98-107); CREATININE 0.88 mg/dL (0.55-1.02); POTASSIUM 4.2 mmol/L (3.5-5.1); SGOT/AST 16 IU/L (3-35); SGPT/ALT 21 U/L (12-78); SODIUM 134 mmol/L (136-145); TOTAL PROTEIN 8.1 gm/dL (6.4-8.2)
--- NOTE | 2018-12-25 14:12 | NUR ---
CRITICAL LACTIC RESULT 3.7. LATRICE FARLEY AUDITING SPECIALIST NOTIFIED.
[2018-12-25 14:21] VITALS: BP 118/67
[2018-12-25 15:14] VITALS: BP 118/67
[2018-12-25 15:35] VITALS: BP 109/60
--- NOTE | 2018-12-25 15:35 | NUR ---
A 43, admitted to 5E, under the services of TRICIA Muñoz DO with a diagnosis of CELLULITIS, SEPSIS, OSTEOMYELITIS OF TOE. Chief complaint is FOOT PAIN. Patient arrived via ambulatory from ER. Monitor applied. Initial assessment completed. Vital signs taken and recorded. TRICIA MUÑOZ DO notified of admission to the unit. Orders received. See assessment for past medical history, medications and allergies. Patient and/or family oriented to unit. [facility] visitation policy reviewed. Clothing/patient valuable form completed. SCAR BRINK
--- NOTE | 2018-12-25 15:56 | NUR ---
DR. MATHUR'S RESIDENT NOTIFIED OF CONSULT
--- NOTE | 2018-12-25 15:58 | NUR ---
DR. WAGGONER'S ANSWERING SERVICE NOTIFIED OF CONSULT
[2018-12-25 16:00] VITALS: BP 109/60
[2018-12-25] MEDS ORDERED: ADMELOG100 UNIT/1 SQ (16:07)
[2018-12-25] MEDS ORDERED: VITAMIN D-32000 UNI1 PO (16:08)
[2018-12-25] MEDS ORDERED: OZEMPIC0.25 MG/01 SQ (16:08)
[2018-12-25 16:44] LABS: BILIRUBIN NEGATIVE (NEGATIVE); BLOOD NEGATIVE (NEGATIVE); CLARITY CLEAR (CLEAR); COLOR YELLOW (YELLOW); GLUCOSE 3+ (NEGATIVE); KETONE NEGATIVE (NEGATIVE); LEUKO ESTERASE NEGATIVE (NEGATIVE); NITRITE NEGATIVE (NEGATIVE); PH 5.5 (5.0-9.0)
[2018-12-25 16:49] LABS: EPITHELIAL CELLS 41-50
[2018-12-25 16:50] LABS: BACTERIA TRACE; WBC 16-20 wbc/hpf (0-5)
--- NOTE | 2018-12-25 19:10 | NUR ---
IV MORPHINE ADMINISTERED PER PRN ORDER FOR C/O PAIN IN R FOOT RATED 9/10. WILL MONITOR EFFECTIVENESS. CALL LIGHT IN REACH.
[2018-12-25 20:00] VITALS: BP 106/58; BP 94/45
[2018-12-26] VITALS (8 sets, daily range): BP systolic 100–156; BP diastolic 40–80
[2018-12-26 07:23] LABS: BASO % 0.4 % (0.0-1.0); EOS # 0.2 10*3/uL (0.0-0.4); HEMATOCRIT 32.6 % (37.0-47.0); HEMOGLOBIN 10.4 g/dl (12.0-16.0); LYMPH # 2.4 10*3/uL (1.3-4.4); LYMPH % 21.4 % (27.0-41.0); MEAN CELL VOLUME 91.3 fl (81.0-99.0); MEAN CORPUSCULAR HGB 29.1 pg (27.0-31.0); MEAN CORPUSCULAR HGB CONC 31.9 g/dl (33.0-37.0); MEAN PLATELET VOLUME 9.6 fl (9.6-12.3); MONO # 0.7 10*3/uL (0.1-1.0); MONO % 5.8 % (3.0-9.0); NEUT # 7.8 10*3/uL (2.3-7.9); NEUT % 70.1 % (47.0-73.0); PLATELET COUNT AUTOMATED 385 10*3/uL (130-400); RED BLOOD COUNT 3.57 10*6/uL (4.10-5.10); RED CELL DISTRI WIDTH 13.3 % (0-14.5); WHITE BLOOD COUNT 11.2 10*3/uL (4.8-10.8)
[2018-12-26 07:46] LABS: BUN 8 mg/dl (7-24); CHLORIDE 109 mmol/L (98-107); CREATININE 0.63 mg/dL (0.55-1.02); POTASSIUM 3.9 mmol/L (3.5-5.1); SODIUM 143 mmol/L (136-145)
--- NOTE | 2018-12-26 08:05 | NUR ---
TAYLOR WARREN [id number] Please refer to the physician's history and physical for past medical history, comorbid conditions, and allergies. Diagnosis: CELLULITIS, SEPSIS OSTEOMYCLITIS OF TOE Edwardo Score: 20,LOW OR NO RISK WOUND DESCRIPTIONS: DRESSING TO RIGHT FOOT CLEAN DRY AND INTACT. NO STRIKE THROUGH NOTED. PATIENT DENIED PAIN AT TIME OF ASSESSMENT. PATIENT IS HAVING SURGERY ON RIGHT 2ND TOE TODAY BY DR. YANES. PATIENT STATES THAT SHE WOULD LIKE TO FOLLOW UP IN THE WOUND CARE CENTER WHEN DISCHARGED. Surface the patient is resting on: Isoflex SKIN PREVENTION RECOMMENDATION: 1. Pressure redistribution support surface as appropriate 2. Elevate heels 3. Remove boots/TEDS every shift and reapply 4. Head of bed 30 degrees as tolerated 5. Assess nutrition and hydration 6. Manage moisture 7. Avoid the use of containment devices while in bed 8. Use absorptive products on surfaces limit layers of linens on bed 9. Turn and reposition every 1-2 hours in bed and every 1 hour in chair as tolerated 10. Weight shifts every 15 minutes while up in chair 11. Offloading with pillows or device to keep heels elevated off bed 12. Monitor skin at least every shift 13. Inspect under medical devices twice a day WOUND TREATMENT RECOMMENDATIONS: AWAIT POST OP ORDERS FROM PODIATRY.
--- NOTE | 2018-12-26 08:58 | NUR ---
Spoke with Dr. Pruett regarding wound care orders he stated he will put them in after surgery.
--- NOTE | 2018-12-26 08:59 | NUR ---
PHYSICAL THERAPY Nursing screen received and chart reviewed. Physical therapy referral received. Thank you. Andressa Man,PT,DPT.
--- NOTE | 2018-12-26 09:00 | NUR ---
UPON ENTERING ROOM, PATIENT AWAKE, ALERT AND ORIENTED. NO STATED COMPLAINTS. PT DENIES PAIN AT THIS TIME. DRESSING IS DRY AND INTACT. RESPIRATIONS ARE EASY AND REGULAR. SO S/S OF DISTRESS OR SOB. BED IN LOWEST LOCKED POSITION AND CALL LIGHT WITHIN REACH. WILL CONTINUE TO MONITOR.
--- NOTE | 2018-12-26 09:42 | NUR ---
Occupational therapy orders received and chart reviewed. Patient stating she is not feeling up to an OT/PT evaluation at this time. Per discussion with patient, she is going to surgery at noon. Patient does "not want to do anything because of my foot" at this time. Will follow up with patient tomorrow for completion of OT evaluation. Thank you. Iwona Oleary, OTR/L
--- NOTE | 2018-12-26 09:42 | NUR ---
PHYSICAL THERAPY Physical therapy evaluation offered. Patient reports that she is not feeling up to moving around right now because of her foot, and she is scheduled for surgery today around noon. Will return at a later date to complete PT evaluation. Thank you. Andressa Man,PT,DPT.
--- NOTE | 2018-12-26 10:56 | NUR ---
NPO STATUS MAINTAINED. DENIES NEED FOR PAIN MEDS AT THIS TIME. NO S/S OF DISTRES OR SOB. DRESSING DRY/INTACT. BED IN LOWEST LOCKED POSITION.
--- NOTE | 2018-12-26 11:00 | NUR ---
PT OFF OF FLOOR FOR SURGERY.
--- NOTE | 2018-12-26 11:47 | NUR ---
Directory Compiler in to talk to patient. Patient states lives at HOME with BOYFRIEND. There are NO steps in the home. Physician: PIETER PASCAL Pharmacy: [facility] health services: NONE Patient's level of ADLs: INDEPENDENT Patient has working utilities: YES DME: [facility] Follow-up physician's appointment after d/c: WILL BE MADE BY HOSPITALIST NURSE DIRECTOR ON DISCHARGE Does patient want to access PORTAL?: NO Discharge plan PT LIVES AT HOME AND IS INDEPENDENT IN HER CARE. DISCHARGE PLAN IS TO RETURN HOME WHEN MEDICALLY STABLE. PT WAS TALKING ON PHONE ON VISIT SO DID NOT HAVE A CHANCE TO TALK TO HER ABOUT POSSIBLILITY OF [facility] IV ANTIBIOTICS. WILL RETURN TO TALK WITH PT LATER. WILL CONTINUE TO FOLLOW. WILL HAVE A RIDE HOME PER PT.. CHRIS SAUCEDO
--- NOTE | 2018-12-26 12:36 | NUR ---
REPORT RECIEVED FROM SURGERY.
--- NOTE | 2018-12-26 20:15 | NUR ---
IV MORPHINE ADMINISTERED SLOWLY PER PRN ORDER FOR C/O R FOOT PAIN RATED 7/10. WILL MONITOR EFFECTIVENESS. CALL LIGHT IN REACH.
--- NOTE | 2018-12-26 21:23 | NUR ---
EARLIER MORPHINE EFFECTIVE PER PT. WILL MONITOR. CALL LIGHT IN REACH.
--- NOTE | 2018-12-26 23:43 | NUR ---
PT C/O BREAKTHROUGH PAIN. TOO SOON FOR MORPHINE. AWARE. NEW ORDER RECEIVED FOR PO NORCO 5/325 Q4H PRN FOR BREAKTHROUGH PAIN.
[2018-12-27] VITALS: BP 106/49
--- NOTE | 2018-12-27 00:30 | NUR ---
PT MEDICATED WITH IV MORPHINE FOR C/O PAIN IN R FOOT RATED 10/10. PO NORCO JUST RECENTLY PROFILED FROM [facility]. PT REQUESTING IV MORPHINE INSTEAD. WILL MONITOR EFFECTIVENESS. CALL LIGHT LEFT IN REACH.
[2018-12-27 02:00] VITALS: BP 100/50
--- NOTE | 2018-12-27 02:09 | NUR ---
PT STATES EARLIER MORPHINE HELPED SOME. STILL RATING PAIN 5/10. PO NORCO GIVEN PER PRN ORDER. WILL MONITOR. CALL LIGHT LEFT IN REACH.
--- NOTE | 2018-12-27 05:15 | NUR ---
IV MORPHINE ADMINISTERED PER PRN ORDER FOR C/O PAIN IN R FOOT RATED 5/10. WILL MONITOR. CALL LIGHT IN REACH.
--- NOTE | 2018-12-27 05:59 | NUR ---
EARLIER MEDICATION EFFECTIVE PER PT. WILL MONITOR. CALL LIGHT IN REACH.
[2018-12-27 06:29] LABS: BASO # 0.1 10*3/uL (0.0-0.1); BASO % 0.4 % (0.0-1.0); EOS # 0.2 10*3/uL (0.0-0.4); EOS % 1.5 % (1.0-4.0); HEMATOCRIT 30.1 % (37.0-47.0); HEMOGLOBIN 9.6 g/dl (12.0-16.0); LYMPH # 2.4 10*3/uL (1.3-4.4); LYMPH % 20.4 % (27.0-41.0); MEAN CELL VOLUME 91.8 fl (81.0-99.0); MEAN CORPUSCULAR HGB 29.3 pg (27.0-31.0); MEAN CORPUSCULAR HGB CONC 31.9 g/dl (33.0-37.0); MEAN PLATELET VOLUME 9.2 fl (9.6-12.3); MONO # 0.7 10*3/uL (0.1-1.0); MONO % 6.1 % (3.0-9.0); NEUT # 8.4 10*3/uL (2.3-7.9); NEUT % 71.1 % (47.0-73.0); PLATELET COUNT AUTOMATED 386 10*3/uL (130-400); RED BLOOD COUNT 3.28 10*6/uL (4.10-5.10); RED CELL DISTRI WIDTH 13.3 % (0-14.5); WHITE BLOOD COUNT 11.8 10*3/uL (4.8-10.8)
[2018-12-27 06:58] LABS: BUN 7 mg/dl (7-24); CHLORIDE 106 mmol/L (98-107); CREATININE 0.61 mg/dL (0.55-1.02); POTASSIUM 3.8 mmol/L (3.5-5.1); SODIUM 140 mmol/L (136-145)
[2018-12-27 08:00] VITALS: BP 113/60
--- NOTE | 2018-12-27 08:00 | NUR ---
Patient resting quietly with no c/o discomfort. Respirations easy and regular. Vital signs stable. No overt distress. EDER VIEIRA
--- NOTE | 2018-12-27 08:41 | NUR ---
24 HR chart check completed.
--- NOTE | 2018-12-27 10:30 | NUR ---
NORCO GIVEN PO FOR PAIN PER PATIENT REQUEST. PAIN IS RATED 5/10.
--- NOTE | 2018-12-27 10:58 | NUR ---
OTR approached podiatry resident requesting weight bearing status prior to evaluation. Doctor will send weight bearing orders when he is able. Cherelle Thomason OTR/wilfredo
--- NOTE | 2018-12-27 11:31 | NUR ---
RICKSHAW DRIVER TALKED TO MOTHER AND PT ABOUT POSSIBILITY OF IV ANTIBIOTICS FOR SHELLFISH CHECKER IF CULTURES ARE POSITIVE. PT AND MOTHER STATES THEY WOULD BE ABLE TO DO THEM AT HOME. THEY WERE GIVEN OPTIONS FOR HOME HEALTH AND CHOSE [facility]. WILL CONTINUE TO FOLLOW AND SEND REFERRALS IF NEEDED ONCE CULTURE IS BACK.
[2018-12-27 12:00] VITALS: BP 134/68
--- NOTE | 2018-12-27 12:00 | NUR ---
MEDICATION EFFECTIVE FOR PAIN.
[2018-12-27 16:00] VITALS: BP 113/63
[2018-12-27] MEDS ORDERED: OZEMPIC0.25 MG/01 SQ (16:32)
--- NOTE | 2018-12-27 16:38 | NUR ---
NORCO GIVEN FOR THROBBING PAIN TO RT FOOT RATED 7/10. CALL LIGHT IN REACH. FAMILY AT BEDSIDE. ISOLATION MAINTAINED. WILL MONITOR.
--- NOTE | 2018-12-27 17:56 | NUR ---
NOTED PUFFINESS TO HANDS AND FACE PER PT. IVF INFUSING AT 125CC/HER BAG #5. NOTIFIED AND REQUESTED IVF BE STOPPED. SAID HE WOULD LOOK AT HER CHART.
--- NOTE | 2018-12-27 18:09 | NUR ---
ORDERED TO D/C FLUIDS. SEE MAR.
[2018-12-27 20:00] VITALS: BP 119/53
[2018-12-28] VITALS: BP 118/56
--- NOTE | 2018-12-28 05:14 | NUR ---
PT CO FOOT PAIN 10/22 MEDICATED WITH PRN NORCO. WILL CHECK EFFECTIVENESS. CALL LIGHT WITHIN REACH.
--- NOTE | 2018-12-28 06:20 | NUR ---
PT STATES PAIN MED WAS EFFECTIVE RATING PAIN A 5/10. WILL CONTINUE TO MONITOR. CALL LIGHT WITHIN REACH.
[2018-12-28 07:13] LABS: BUN 5 mg/dl (7-24); CHLORIDE 111 mmol/L (98-107); CREATININE 0.75 mg/dL (0.55-1.02); POTASSIUM 3.5 mmol/L (3.5-5.1); SODIUM 142 mmol/L (136-145)
[2018-12-28 07:20] LABS: BASO % 0.4 % (0.0-1.0); EOS # 0.3 10*3/uL (0.0-0.4); EOS % 2.3 % (1.0-4.0); HEMATOCRIT 31.7 % (37.0-47.0); HEMOGLOBIN 10.2 g/dl (12.0-16.0); LYMPH # 2.1 10*3/uL (1.3-4.4); LYMPH % 18.6 % (27.0-41.0); MEAN CELL VOLUME 90.3 fl (81.0-99.0); MEAN CORPUSCULAR HGB 29.1 pg (27.0-31.0); MEAN CORPUSCULAR HGB CONC 32.2 g/dl (33.0-37.0); MEAN PLATELET VOLUME 9.4 fl (9.6-12.3); MONO # 0.6 10*3/uL (0.1-1.0); MONO % 5.2 % (3.0-9.0); NEUT # 8.2 10*3/uL (2.3-7.9); NEUT % 73.1 % (47.0-73.0); PLATELET COUNT AUTOMATED 440 10*3/uL (130-400); RED BLOOD COUNT 3.51 10*6/uL (4.10-5.10); RED CELL DISTRI WIDTH 13.2 % (0-14.5); WHITE BLOOD COUNT 11.2 10*3/uL (4.8-10.8)
[2018-12-28 08:00] VITALS: BP 126/62
--- NOTE | 2018-12-28 10:37 | NUR ---
MEDICATED WITH PO NORCO ORDERED PER PT REQEST FOR C/O PAIN TO R 2ND TOE.
--- NOTE | 2018-12-28 10:47 | NUR ---
MEDICATED WITH IV MORPHINE ORDERED PER PT REQUEST FOR C/O PAIN TO RIGHT 2ND TOE RATED 10/10 AFTER DRESSING REMOVAL.
--- NOTE | 2018-12-28 11:09 | NUR ---
Occupational therapy orders received and chart reviewed. Patient admitted for severe sepsis due to the right 2nd toe osteomyelitis. Patient had a debridement on 12/26/18, patient PWB R foot per post-operation note. Patient was in a sterile procedure, a PICC line placement on 12/28 in the AM. OT will check back with patient in the afternoon for completion of OT evaluation and POC. Thank you. Iwona Oleary, OTR/L
--- NOTE | 2018-12-28 11:10 | NUR ---
PHYSICAL THERAPY Physical therapy evaluation attempted however Pt currently having a PICC line placed. Nursing recommended checking in one hour. Weight bearing status also received per doctor order (PWB). Will attempt to perform at a later time. Thank you Loida Josue, PT, DPT
[2018-12-28 12:00] VITALS: BP 130/76
--- NOTE | 2018-12-28 12:00 | NUR ---
MEDICATIONS EFFECTIVE FOR PAIN.
--- NOTE | 2018-12-28 13:37 | NUR ---
PHYSICAL THERAPY Physical therapy evaluation completed, 5E. Evaluation and details to follow. Moderate complexity determined after evaluation, [id number]. PT to work on strength, gait, balance, safety, endurance. Recommending home health at discharge. thank you Loida landeros, PT, DPT
--- NOTE | 2018-12-28 13:45 | NUR ---
WAITING FOR DR GHOTRA RECOMENDATINS FOR ANTIBIOTICS FOR DISCHARGE. WILL CONTINUE TO FOLLOW.
--- NOTE | 2018-12-28 13:45 | NUR ---
Occupational therapy orders received and OT evaluation and POC completed in full on floor five. Patient precautions include fall risk, ww use, PWB R foot, and contact precautions. Per OT eval, OT recommends home with HH SN, OT, and PT. Patient would benefit from continued OT treatment to maximize safety and independent during ADLs and functional mobility/transfers. Patient complexity is low, [id number]. Thank you for the referral. Iwona Oleary, OTR/L
--- NOTE | 2018-12-28 14:39 | NUR ---
MEDICATED WITH PO NORCO ORDERED PER PT REQUEST FOR C/O PAIN RATED 8/10 TO R 2ND TOE.
--- NOTE | 2018-12-28 14:55 | NUR ---
MEDICATED WITH IV MORPHINE ORDERED PER PT REQUEST FOR C/O PAIN RATED 8/10 TO R 2ND TOE.
[2018-12-28 16:00] VITALS: BP 124/58
[2018-12-28 16:07] LABS: ACID FAST SPEC PROCESSING Tissue Grinding (.)
--- NOTE | 2018-12-28 18:00 | NUR ---
MEDICATIONS EFFECTIVE FOR PAIN.
[2018-12-28 20:00] VITALS: BP 119/57
--- NOTE | 2018-12-28 22:45 | NUR ---
PATIENT C/O CHEST PAIN WITH SUDDEN ONSET IN A NEW AREA THEN PREVIOUSLY REPORTED. PAIN LOCATED ON THE LEFT SIDE RADIATING TO ARM. ORDERS RECEIVED TO GET EKG AND TROPONIN X1. PAIN WILL BE MANAGED WITH NORCO AND GI COCKTAIL GIVEN IN CASE PAIN IS GI RELATED.
--- NOTE | 2018-12-28 22:55 | NUR ---
MORPHINE GIVEN PER PT REQUEST FOOT RIGHT FOOT PAIN RATED A 7/10 AND DESCRIBED A DHARP STABBING PAIN, CALL LIGHT WITHIN REACH.
[2018-12-29] VITALS (8 sets, daily range): BP systolic 115–136; BP diastolic 53–73
[2018-12-29 05:28] LABS: BASO % 0.2 % (0.0-1.0); EOS # 0.2 10*3/uL (0.0-0.4); EOS % 2.4 % (1.0-4.0); HEMATOCRIT 30.9 % (37.0-47.0); HEMOGLOBIN 9.9 g/dl (12.0-16.0); LYMPH % 21.4 % (27.0-41.0); MEAN CELL VOLUME 90.4 fl (81.0-99.0); MEAN CORPUSCULAR HGB 28.9 pg (27.0-31.0); MONO # 0.5 10*3/uL (0.1-1.0); MONO % 5.7 % (3.0-9.0); NEUT # 6.5 10*3/uL (2.3-7.9); PLATELET COUNT AUTOMATED 434 10*3/uL (130-400); RED BLOOD COUNT 3.42 10*6/uL (4.10-5.10); RED CELL DISTRI WIDTH 13.1 % (0-14.5); WHITE BLOOD COUNT 9.3 10*3/uL (4.8-10.8)
[2018-12-29 05:38] LABS: BUN 6 mg/dl (7-24); CHLORIDE 108 mmol/L (98-107); CREATININE 0.72 mg/dL (0.55-1.02); POTASSIUM 3.5 mmol/L (3.5-5.1); SODIUM 142 mmol/L (136-145)
[2018-12-29 06:01] LABS: VANCOMYCIN TROUGH 21.1 ug/mL (10-20)
--- NOTE | 2018-12-29 09:34 | NUR ---
PT MEDICATED WITH PRN MORPHINE FOR C/O RIGHT FOOT PAIN. PT RATES PAIN /10. WILL MONITOR.
--- NOTE | 2018-12-29 09:40 | NUR ---
PHYSICAL THERAPY Patient was sound asleep resting comfortably this am when approached for therapy visit. Per discussion with several family members present, therapist informed patient to be transported shortly down for Surgery. Will continue per POC as able. Ankur Vaughn, OSTEOPATHIC PHYSICIAN
--- NOTE | 2018-12-29 10:27 | NUR ---
OT NOTE Attempted to see pt this A.M. for OT session and upon arrival pt was supine in bed asleep with family at bedside. Pt's family was requesting to let pt rest at this time due to upcoming medical procedure. Will check back at a later time/date and continue with POC as able. LEILA Steven/Pily
--- NOTE | 2018-12-29 11:31 | NUR ---
PT OFF FLOOR TO SURGERY.
--- NOTE | 2018-12-29 12:17 | NUR ---
PT IS FOR A PARTIAL AMBUTATION OF TOE TODAY. HAS PICC LINE, WAITING FOR IV ANTIBIOTIC RECOMMENDATINS FROM ID TO SET UP. WANTS TO TO HOME AND DO IV THERAPY. WILL CONTINUE TO FOLLOW.
--- NOTE | 2018-12-29 14:30 | NUR ---
SEND INFO TO [facility] TO CHECK PT BENEFITS FOR HOME IV INFUSION OF CEFTRIAXONE. WILL WAIT FOR RETURN CALL.
--- NOTE | 2018-12-29 14:32 | NUR ---
OT NOTE Attempted to see pt this P.M. for OT session and upon arrival pt reported that she had just returned from surgery and was eating lunch at this time. Will check back at a later time/date and continue with POC as able. LEILA Steven/Pily
--- NOTE | 2018-12-29 14:49 | NUR ---
PHYSICAL THERAPY Patient had just returned from Surgery and per request of family member to hold patient therapy this afternoon due to increased c/o pain. Will continue per POC as able. Ankur Vaughn, ADMISSIONS GATE ATTENDANT
--- NOTE | 2018-12-29 16:20 | NUR ---
RECEIVED A CALL FROM [facility] THAT THEY DO NOT TAKE PT INSURANCE BUT HAVE FORWARDED REFERRAL TO [facility] WHO DOES TAKE IT. WILL WAIT FOR RETURN CALL.
--- NOTE | 2018-12-29 17:08 | NUR ---
[facility]OCK REMOVED PER PT REQUEST. PICC LINE PATENT.
[2018-12-30] VITALS: BP 123/62
[2018-12-30 06:35] LABS: BASO % 0.2 % (0.0-1.0); EOS # 0.2 10*3/uL (0.0-0.4); EOS % 2.8 % (1.0-4.0); HEMATOCRIT 33.2 % (37.0-47.0); HEMOGLOBIN 10.7 g/dl (12.0-16.0); LYMPH # 2.1 10*3/uL (1.3-4.4); LYMPH % 26.2 % (27.0-41.0); MEAN CELL VOLUME 89.2 fl (81.0-99.0); MEAN CORPUSCULAR HGB 28.8 pg (27.0-31.0); MEAN CORPUSCULAR HGB CONC 32.2 g/dl (33.0-37.0); MONO # 0.5 10*3/uL (0.1-1.0); MONO % 5.8 % (3.0-9.0); NEUT # 5.3 10*3/uL (2.3-7.9); NEUT % 64.5 % (47.0-73.0); PLATELET COUNT AUTOMATED 481 10*3/uL (130-400); RED BLOOD COUNT 3.72 10*6/uL (4.10-5.10); RED CELL DISTRI WIDTH 13.2 % (0-14.5); WHITE BLOOD COUNT 8.1 10*3/uL (4.8-10.8)
[2018-12-30 06:49] LABS: BUN 7 mg/dl (7-24); CHLORIDE 106 mmol/L (98-107); CREATININE 0.63 mg/dL (0.55-1.02); POTASSIUM 3.6 mmol/L (3.5-5.1); SODIUM 141 mmol/L (136-145)
--- NOTE | 2018-12-30 07:58 | NUR ---
kan given for c/o rt. foot pain, rates 7/10 on pain scale. will
[2018-12-30 08:00] VITALS: BP 119/60
--- NOTE | 2018-12-30 09:00 | NUR ---
[facility] WILL MONITOR.
[2018-12-30] MEDS ORDERED: CEFTRIAXON2 GM/50 ML IV (09:54)
--- NOTE | 2018-12-30 10:57 | NUR ---
SCRIP FOR CEFTRIAXONE SENT TO [facility]. WILL AWAIT RETURN CALL.
--- NOTE | 2018-12-30 10:59 | NUR ---
REFERRAL FAXED TO [facility].
--- NOTE | 2018-12-30 11:00 | NUR ---
OT NOTE Pt was seen this A.M. 1:1 for 15 minute OT session. Upon arrival pt was supine in bed. Pt identified by name and . Pt transferred supine to sit EOB with SBA. Functional mobility then completed around the room with CGA and use of w/w with 100% carry over of partial weight bearing status to RLE. Throughout pt was educated on work simplification and energy conservation techniques for increased I and enhanced safety. Pt then transferred back into bed sit to supine with SBA. There she was left with call light in hand, tray table in place, and mother and son at bedside. Continue with rec D/C plan to SNF. LEILA Steven/Pily
--- NOTE | 2018-12-30 11:05 | NUR ---
PHYSICAL THERAPY Patient seen this am 1:1 for therapy visit and was supine in bed upon therapist arrival. Patient identified by name / and presented with R Foot Gauze wrap. Several family members were also present this morning during TONE ARTIST APPRENTICE visit as patient reports 7/10 R foot / toe pain. Patient is PWB on R LE and transfers all with SBA, while ambulating with use of wh walker, 40'x 1, CGA, demonstrating antalgic, "step to" gait pattern. Patient returned to supine in bed with R LE elevated on top of several pillows, including cold pack for edema / pain control. Patient remained in bed with call light, tray table and cell phone. Will continue per POC as tolerated, total treatemnt time 14 minutes. Ankur Vaughn, TONE ARTIST APPRENTICE
[2018-12-30] MEDS ORDERED: NORCO 7.5-3251 EACH PO (11:06)
[2018-12-30 12:00] VITALS: BP 129/73
--- NOTE | 2018-12-30 13:24 | NUR ---
[facility] CALLED AND LEFT MESSAGE THAT PT WAS BEING DISCHARGED TODAY AND WILL NEED TO START HER ANTIBIOTICS TOMORROW AT 2PM. [facility] NOTIFIED THAT PT WOULD NEED TO START IV ANTIBIOTICS TOMORROW AT 2PM. PT AND MOTHER INFORMED THAT ANTIBIOTICS AND HOME HEALTH ARE SET UP FOR DISCHARGE.
--- NOTE | 2018-12-30 13:48 | NUR ---
[facility] Discharge instructions reviewed with patient/family. Patient receptive and verbalizes understanding. Follow-up care arranged. Written instructions given to patient/family. BRIANNE RAPP
--- NOTE | 2018-12-30 16:11 | NUR ---
PHYSICAL THERAPY CO-SIGN I approve of the Physical Therapy notes written above. CHRISTEN BUTLER, PT, DPT
[2019-02-08 12:09] LABS: ACID FAST CULTURE Negative (.)
== END 2018-12-30 13:50 | disposition home health service (06) | DRG 710 ==
LOC: ED 13:12 → 5E 14:48 → EDHOLD 14:48 → 5E 15:06
PROVIDERS: Internal Medicine; Nurse Practitioner Family; Podiatrist; ADMIT Internal Medicine
PROC: 0QBQ0ZX Excision of Right Toe Phalanx, Open Approach, Diagnostic (ICD-10-PCS; 2018-12-26)
PROC: 02HV33Z Insertion of Infusion Device into Superior Vena Cava, Percutaneous Approach (ICD-10-PCS; 2018-12-28)
PROC: 0Y6R0Z3 Detachment at Right 2nd Toe, Low, Open Approach (ICD-10-PCS; principal; 2018-12-29)
DX: A41.9 Sepsis, unspecified organism (principal); L03.115 Cellulitis of right lower limb; R30.0 Dysuria; E10.42 Type 1 diabetes mellitus with diabetic polyneuropathy; F32.9 Major depressive disorder, single episode, unspecified; F41.9 Anxiety disorder, unspecified; E10.69 Type 1 diabetes mellitus with other specified complication; E10.65 Type 1 diabetes mellitus with hyperglycemia; R65.20 Severe sepsis without septic shock; L02.611 Cutaneous abscess of right foot; E10.621 Type 1 diabetes mellitus with foot ulcer; M86.171 Other acute osteomyelitis, right ankle and foot; L97.519 Non-pressure chronic ulcer of other part of right foot with unspecified severity; D47.3 Essential (hemorrhagic) thrombocythemia; E87.8 Other disorders of electrolyte and fluid balance, not elsewhere classified; E44.0 Moderate protein-calorie malnutrition; Z90.49 Acquired absence of other specified parts of digestive tract; Z98.891 History of uterine scar from previous surgery; Z82.49 Family history of ischemic heart disease and other diseases of the circulatory system; Z83.3 Family history of diabetes mellitus; Z80.3 Family history of malignant neoplasm of breast; Z86.14 Personal history of Methicillin resistant Staphylococcus aureus infection; Z79.899 Other long term (current) drug therapy; Z68.31 Body mass index [BMI] 31.0-31.9, adult

== ENCOUNTER 2019-02-16 21:23 | Emergency (ER) | payer OTHER ==
[~2019-02-16] VITALS: Ht 170.1 cm; Wt 81.6 kg
[~2019-02-16 21:23] MED LIST changes: +CEFTRIAXON2 GM/50 ML IV; +NORCO 7.5-3251 EACH PO; +OZEMPIC0.25 MG/01 SQ; +VITAMIN D-32000 UNI1 PO
[2019-02-16 21:24] VITALS: BP 142/65
[2019-02-16 21:52] LABS: BASO % 0.5 % (0.0-1.0); EOS # 0.4 10*3/uL (0.0-0.4); EOS % 5.2 % (1.0-4.0); HEMATOCRIT 42.3 % (37.0-47.0); HEMOGLOBIN 13.3 g/dl (12.0-16.0); LYMPH # 2.5 10*3/uL (1.3-4.4); LYMPH % 33.5 % (27.0-41.0); MEAN CELL VOLUME 90.2 fl (81.0-99.0); MEAN CORPUSCULAR HGB 28.4 pg (27.0-31.0); MEAN CORPUSCULAR HGB CONC 31.4 g/dl (33.0-37.0); MEAN PLATELET VOLUME 9.7 fl (9.6-12.3); MONO # 0.5 10*3/uL (0.1-1.0); MONO % 6.6 % (3.0-9.0); NEUT % 54.1 % (47.0-73.0); PLATELET COUNT AUTOMATED 353 10*3/uL (130-400); RED BLOOD COUNT 4.69 10*6/uL (4.10-5.10); RED CELL DISTRI WIDTH 14.6 % (0-14.5); WHITE BLOOD COUNT 7.5 10*3/uL (4.8-10.8)
[2019-02-16 22:08] LABS: ALBUMIN 3.8 gm/dl (3.1-4.5); ALKALINE PHOSPHATASE 63 U/L (45-117); BUN 16 mg/dl (7-24); CHLORIDE 107 mmol/L (98-107); CREATININE 0.91 mg/dL (0.55-1.02); POTASSIUM 3.9 mmol/L (3.5-5.1); SGOT/AST 17 IU/L (3-35); SGPT/ALT 26 U/L (12-78); SODIUM 141 mmol/L (136-145); TOTAL PROTEIN 7.7 gm/dL (6.4-8.2)
[2019-02-16] MEDS ORDERED: VIBRAMYCIN100 MG PO (23:07)
== END 2019-02-17 00:06 | disposition home or self-care (01) ==
LOC: ED 21:23
PROVIDERS: Physician Assistant
DX: L03.031 Cellulitis of right toe (principal); R00.0 Tachycardia, unspecified; E11.9 Type 2 diabetes mellitus without complications; Z79.899 Other long term (current) drug therapy; Z79.2 Long term (current) use of antibiotics; Z79.4 Long term (current) use of insulin; Z90.49 Acquired absence of other specified parts of digestive tract; Z89.421 Acquired absence of other right toe(s); Z86.14 Personal history of Methicillin resistant Staphylococcus aureus infection

== ENCOUNTER → 2019-07-27 | Day surgery (SDC) | payer OTHER ==
[2019-07-24 15:27] LABS: BASO % 0.4 % (0.0-1.0); EOS # 0.2 10*3/uL (0.0-0.4); EOS % 2.1 % (1.0-4.0); HEMATOCRIT 42.8 % (37.0-47.0); LYMPH # 3.2 10*3/uL (1.3-4.4); LYMPH % 34.7 % (27.0-41.0); MEAN CELL VOLUME 91.3 fl (81.0-99.0); MEAN CORPUSCULAR HGB 29.2 pg (27.0-31.0); MEAN PLATELET VOLUME 10.4 fl (9.6-12.3); MONO # 0.5 10*3/uL (0.1-1.0); NEUT # 5.3 10*3/uL (2.3-7.9); NEUT % 57.5 % (47.0-73.0); PLATELET COUNT AUTOMATED 373 10*3/uL (130-400); RED BLOOD COUNT 4.69 10*6/uL (4.10-5.10); RED CELL DISTRI WIDTH 13.8 % (0-14.5); WHITE BLOOD COUNT 9.2 10*3/uL (4.8-10.8)
[~2019-07-27] VITALS: Ht 170.1 cm; Wt 79.4 kg
[~2019-07-27] MED LIST changes: +LIPITOR20 MG PO; +STEGLATRO15 MG PO; +VIBRAMYCIN100 MG PO; +VITAMIN B121000 MC1 PO
[2019-07-27 12:00] VITALS: BP 133/78
[2019-07-27 13:33] VITALS: BP 124/64
[2019-07-27 13:48] VITALS: BP 124/64
[2019-07-27 14:03] VITALS: BP 121/71
[2019-07-29 12:06] LABS: ACID FAST SPEC PROCESSING Tissue Grinding (.)
[2019-07-29 12:06] LABS: ACID FAST SPEC PROCESSING Tissue Grinding (.)
== END | disposition home or self-care (01) ==
LOC: SDC 07-24 11:00
PROVIDERS: Podiatrist
DX: E11.621 Type 2 diabetes mellitus with foot ulcer (principal); M86.9 Osteomyelitis, unspecified; F41.9 Anxiety disorder, unspecified; F32.9 Major depressive disorder, single episode, unspecified; E11.65 Type 2 diabetes mellitus with hyperglycemia; Z98.890 Other specified postprocedural states

== ENCOUNTER → 2020-01-19 | Outpatient (CLI) | payer OTHER ==
[~2020-01-19] MED LIST changes: +JARDIANCE25 MG PO; +LANTUS SOL100 UNIT/1 SC; +NEURONTIN100 MG PO; +OMEPRAZOLE40 MG PO; +OZEMPIC1 MG/0.75 SQ
== END | disposition home or self-care (01) ==
LOC: US 14:14
PROVIDERS: ATTEND Nurse Practitioner Primary Care
DX: M54.9 Dorsalgia, unspecified (principal); R10.9 Unspecified abdominal pain

== ENCOUNTER → 2020-02-05 | Outpatient (CLI) | payer OTHER | END | disposition home or self-care (01) | LOC: CARD 08:30 | PROVIDERS: ATTEND Student in an Organized Health Care Education/Training Program | DX: R94.31 Abnormal electrocardiogram [ECG] [EKG] (principal) ==

== ENCOUNTER → 2020-02-12 | Outpatient (CLI) | payer OTHER ==
--- NOTE | 2020-02-12 10:50 | NUR ---
INOFORMED CONSENT SIGNED FOR CARDIOLYTE STRESS TEST WITH DR. CARR. RESTING EKG NSR, HR 93, BP 124/74. COMPLETED 5:15 OF A STANDARD BRE PROTOCOL COMPLETING 2:15 STAGE II, 2.5MPH/12% GRADE. PEAK HEART RATE OF 153 ACHIEVED WHICH IS 87% PREDICTED MAXIMUM AND A PEAK BP OF 178/54. TEST TERMINATED D/T FATIGUE AND CHEST PAIN. AT STAGE I OF STRESS TEST, PT C/O CHEST PAIN RATING IT A 7/10. DENIES HAVING ANY PAIN PRIOR TO TEST. NONDIANOSTIC ST CHANGES NOTED WITH NO ARRHYTHMIAS. HAS A FAIR EXERCISE TOLERANCE. AT 8 MINUTE RECOVERY PAIN DOWN TO 5/10 BEFORE GOING TO 3/10 PRIOR TO END OF RECOVERY. DR. CARR STATES THAT IT IS NONLIMITING STABLE ANGINA.LAST RECOVERY HR 118, BP 148/80. WAITING NUCLEAR SCANNING IN STABLE CONDITION.
== END | disposition home or self-care (01) ==
LOC: CARD 00:07
PROVIDERS: ATTEND Student in an Organized Health Care Education/Training Program
DX: R07.9 Chest pain, unspecified (principal); R94.31 Abnormal electrocardiogram [ECG] [EKG]

== ENCOUNTER → 2020-06-21 | Outpatient (CLI) | payer OTHER | END | disposition home or self-care (01) | LOC: US 14:00 | PROVIDERS: ATTEND Obstetrics & Gynecology | DX: N93.8 Other specified abnormal uterine and vaginal bleeding (principal); Z97.5 Presence of (intrauterine) contraceptive device ==

== ENCOUNTER 2020-07-15 08:49 | Emergency (ER) | payer OTHER ==
[~2020-07-15] VITALS: Ht 170.1 cm; Wt 79.4 kg
[2020-07-15 10:31] LABS: BASO % 0.4 % (0.0-1.0); EOS # 0.1 10*3/uL (0.0-0.4); EOS % 1.5 % (1.0-4.0); HEMATOCRIT 40.8 % (37.0-47.0); LYMPH # 1.7 10*3/uL (1.3-4.4); LYMPH % 21.6 % (27.0-41.0); MEAN CELL VOLUME 90.3 fl (81.0-99.0); MEAN CORPUSCULAR HGB 29.6 pg (27.0-31.0); MEAN CORPUSCULAR HGB CONC 32.8 g/dl (33.0-37.0); MEAN PLATELET VOLUME 9.3 fl (9.6-12.3); MONO # 0.4 10*3/uL (0.1-1.0); MONO % 4.6 % (3.0-9.0); NEUT # 5.7 10*3/uL (2.3-7.9); NEUT % 71.6 % (47.0-73.0); PLATELET COUNT AUTOMATED 352 10*3/uL (130-400); RED BLOOD COUNT 4.52 10*6/uL (4.10-5.10); RED CELL DISTRI WIDTH 12.7 % (0-14.5)
[2020-07-15 10:45] LABS: ALBUMIN 3.6 gm/dl (3.1-4.5); ALKALINE PHOSPHATASE 87 U/L (45-117); BUN 15 mg/dl (7-24); CHLORIDE 105 mmol/L (98-107); CREATININE 0.83 mg/dL (0.55-1.02); LIPASE 53 U/L (73-393); POTASSIUM 4.4 mmol/L (3.5-5.1); SGOT/AST 12 IU/L (3-35); SGPT/ALT 30 U/L (12-78); SODIUM 139 mmol/L (136-145); TOTAL PROTEIN 7.9 gm/dL (6.4-8.2)
[2020-07-15 11:00] LABS: BILIRUBIN Negative (Negative); BLOOD Negative (Negative); CLARITY Clear (Clear); COLOR Yellow (Yellow); GLUCOSE Negative (Negative); KETONE Negative (Negative); LEUKO ESTERASE 2+ (Negative); NITRITE Negative (Negative); SPECIFIC GRAVITY 1.015 (1.001-1.030)
[2020-07-15 11:16] LABS: BACTERIA TRACE; RBC 0-2 rbc/hpf (0-2); WBC 16-20 wbc/hpf (0-5)
[2020-07-15 14:07] VITALS: BP 125/80
== END 2020-07-15 15:35 | disposition home or self-care (01) ==
LOC: ED 08:49
PROVIDERS: Physician Assistant
DX: R10.9 Unspecified abdominal pain (principal); Z79.899 Other long term (current) drug therapy; Z79.4 Long term (current) use of insulin; Z98.890 Other specified postprocedural states; Z90.49 Acquired absence of other specified parts of digestive tract

== ENCOUNTER → 2020-11-06 | Outpatient (CLI) | payer OTHER ==
[2020-11-07 14:08] LABS: FOLLICLE STIMULATING HORMONE 8.3 mIU/mL (.)
== END | disposition home or self-care (01) ==
LOC: LAB 10:10
PROVIDERS: ATTEND Obstetrics & Gynecology
DX: N92.1 Excessive and frequent menstruation with irregular cycle (principal); Z79.899 Other long term (current) drug therapy

== ENCOUNTER → 2021-04-08 | Outpatient (CLI) | payer OTHER | END | disposition home or self-care (01) | LOC: MAMMO 15:25 | PROVIDERS: ATTEND Obstetrics & Gynecology | DX: Z12.31 Encounter for screening mammogram for malignant neoplasm of breast (principal) ==

== ENCOUNTER → 2021-06-28 | Outpatient (CLI) | payer OTHER ==
[~2021-06-28] MED LIST changes: +PHENERGAN25 M3 PO
[2021-06-28 08:55] LABS: BASO # 0.1 10*3/uL (0.0-0.1); BASO % 0.7 % (0.0-1.0); EOS # 0.2 10*3/uL (0.0-0.4); EOS % 2.8 % (1.0-4.0); HEMATOCRIT 35.8 % (37.0-47.0); LYMPH # 1.8 10*3/uL (1.3-4.4); LYMPH % 23.7 % (27.0-41.0); MEAN CELL VOLUME 89.1 fl (81.0-99.0); MEAN CORPUSCULAR HGB 29.4 pg (27.0-31.0); MEAN PLATELET VOLUME 9.8 fl (9.6-12.3); MONO # 0.5 10*3/uL (0.1-1.0); MONO % 6.8 % (3.0-9.0); NEUT # 4.9 10*3/uL (2.3-7.9); NEUT % 65.7 % (47.0-73.0); PLATELET COUNT AUTOMATED 343 10*3/uL (130-400); RED BLOOD COUNT 4.02 10*6/uL (4.10-5.10); RED CELL DISTRI WIDTH 12.8 % (0-14.5); WHITE BLOOD COUNT 7.4 10*3/uL (4.8-10.8)
[2021-06-28 09:08] LABS: ALKALINE PHOSPHATASE 100 U/L (45-117); BUN 19 mg/dl (7-24); CHLORIDE 110 mmol/L (98-107); CHOLESTEROL 145 mg/dL (<200); CREATININE 0.85 mg/dL (0.55-1.02); LDL CHOLESTEROL 86 mg/dL (9-159); POTASSIUM 4.3 mmol/L (3.5-5.1); SGOT/AST 19 IU/L (3-35); SGPT/ALT 33 U/L (12-78); SODIUM 141 mmol/L (136-145); TOTAL PROTEIN 7.4 gm/dL (6.4-8.2); TRIGLYCERIDES 57 mg/dl (<150)
[2021-06-28 10:11] LABS: VITAMIN D, 25-HYDROXY 67.6 ng/mL (30-100)
[2021-07-06 13:06] LABS: CODFISH, IGE <0.10 kU/L (Class 0); CORN, IGE <0.10 kU/L (Class 0); EGG WHITE, IGE <0.10 kU/L (Class 0); MILK (COW), IGE <0.10 kU/L (Class 0); PEANUT, IGE <0.10 kU/L (Class 0); SOYBEAN, IGE <0.10 kU/L (Class 0); WHEAT, IGE <0.10 kU/L (Class 0)
== END | disposition home or self-care (01) ==
LOC: LAB 08:19
PROVIDERS: ATTEND Family Medicine
DX: T78.1XXA Other adverse food reactions, not elsewhere classified, initial encounter (principal); E11.65 Type 2 diabetes mellitus with hyperglycemia; E55.9 Vitamin D deficiency, unspecified; E53.8 Deficiency of other specified B group vitamins; X58.XXXA Exposure to other specified factors, initial encounter

== ENCOUNTER 2021-06-30 13:50 | Emergency (ER) | payer OTHER ==
[~2021-06-30] VITALS: Ht 170.1 cm; Wt 81.6 kg
[~2021-06-30 13:50] MED LIST changes: -PHENERGAN25 M3 PO
[2021-06-30 14:10] VITALS: BP 128/59
[2021-06-30 15:52] LABS: BASO % 0.2 % (0.0-1.0); LYMPH # 0.8 10*3/uL (1.3-4.4); LYMPH % 5.7 % (27.0-41.0); MEAN CELL VOLUME 87.9 fl (81.0-99.0); MEAN CORPUSCULAR HGB 29.2 pg (27.0-31.0); MEAN CORPUSCULAR HGB CONC 33.2 g/dl (33.0-37.0); MEAN PLATELET VOLUME 9.3 fl (9.6-12.3); MONO # 0.9 10*3/uL (0.1-1.0); MONO % 6.2 % (3.0-9.0); NEUT # 12.3 10*3/uL (2.3-7.9); NEUT % 87.5 % (47.0-73.0); PLATELET COUNT AUTOMATED 290 10*3/uL (130-400); RED BLOOD COUNT 3.87 10*6/uL (4.10-5.10); RED CELL DISTRI WIDTH 12.9 % (0-14.5); WHITE BLOOD COUNT 14.1 10*3/uL (4.8-10.8)
[2021-06-30 16:09] LABS: ALKALINE PHOSPHATASE 109 U/L (45-117); BUN 17 mg/dl (7-24); CHLORIDE 105 mmol/L (98-107); POTASSIUM 3.9 mmol/L (3.5-5.1); SGOT/AST 41 IU/L (3-35); SGPT/ALT 53 U/L (12-78); SODIUM 136 mmol/L (136-145); TOTAL PROTEIN 7.4 gm/dL (6.4-8.2)
[2021-06-30 16:16] LABS: BILIRUBIN Negative (Negative); BLOOD Trace-Intact (Negative); CLARITY Cloudy (Clear); COLOR Dark Yellow (Yellow); GLUCOSE 3+ (Negative); KETONE Trace (Negative); LEUKO ESTERASE 2+ (Negative); NITRITE Positive (Negative); PH 5.5 (4.5-8.0); SPECIFIC GRAVITY >= 1.030 (1.001-1.030)
[2021-06-30 16:26] LABS: BACTERIA 3+; WBC TNTC wbc/hpf (0-5)
[2021-06-30] MEDS ORDERED: CIPRO500 MG PO (17:49)
[2021-06-30] MEDS ORDERED: PHENERGAN25 M3 PO (17:49)
== END 2021-06-30 18:10 | disposition home or self-care (01) ==
LOC: ED 13:50
PROVIDERS: Internal Medicine
DX: N39.0 Urinary tract infection, site not specified (principal); Z79.899 Other long term (current) drug therapy; Z90.49 Acquired absence of other specified parts of digestive tract; Z98.890 Other specified postprocedural states

== ENCOUNTER → 2021-10-08 | Outpatient (CLI) | payer OTHER ==
[~2021-10-08] MED LIST changes: +PHENERGAN25 M3 PO
== END ==
LOC: LAB 15:02
PROVIDERS: ATTEND Internal Medicine Cardiovascular Disease
DX: R00.0 Tachycardia, unspecified (principal)

== ENCOUNTER → 2022-01-29 | Outpatient (CLI) | payer OTHER ==
[~2022-01-29] MED LIST changes: +CLOBETASOL PROP15 GM T; +MACROBID100 M1 PO; +PREDNISONE50 MG PO
[2022-01-29 15:09] LABS: BASO % 0.5 % (0.0-1.0); EOS # 0.2 10*3/uL (0.0-0.4); EOS % 3.7 % (1.0-4.0); HEMATOCRIT 36.8 % (37.0-47.0); LYMPH # 2.2 10*3/uL (1.3-4.4); LYMPH % 36.1 % (27.0-41.0); MEAN CELL VOLUME 87.8 fl (81.0-99.0); MEAN CORPUSCULAR HGB 29.1 pg (27.0-31.0); MEAN CORPUSCULAR HGB CONC 33.2 g/dl (33.0-37.0); MEAN PLATELET VOLUME 9.4 fl (9.6-12.3); MONO # 0.3 10*3/uL (0.1-1.0); MONO % 5.5 % (3.0-9.0); NEUT # 3.2 10*3/uL (2.3-7.9); NEUT % 53.9 % (47.0-73.0); PLATELET COUNT AUTOMATED 308 10*3/uL (130-400); RED BLOOD COUNT 4.19 10*6/uL (4.10-5.10); RED CELL DISTRI WIDTH 14.3 % (0-14.5)
[2022-01-29 15:37] LABS: IRON 73 ug/dL (50-170)
== END | disposition home or self-care (01) ==
LOC: LAB 14:33
PROVIDERS: ATTEND Internal Medicine
DX: K30 Functional dyspepsia (principal)

== ENCOUNTER → 2022-01-30 | Outpatient (CLI) | payer OTHER | END | disposition home or self-care (01) | LOC: LAB 13:24 | PROVIDERS: ATTEND Internal Medicine | DX: K30 Functional dyspepsia (principal) ==

== ENCOUNTER → 2022-07-28 | Outpatient (CLI) | payer OTHER ==
[~2022-07-28] MED LIST changes: +ONDANSETRON HYDR4 M1 PO
[2022-07-28 15:48] LABS: ALKALINE PHOSPHATASE 87 U/L (46-116); BUN 17 mg/dl (9-23); CHLORIDE 102 mmol/L (98-107); SGPT/ALT 27 U/L (10-49); TOTAL PROTEIN 7.6 gm/dL (6.0-8.0)
== END | disposition home or self-care (01) ==
LOC: LAB 14:42
PROVIDERS: ATTEND Nurse Practitioner Family
DX: N20.0 Calculus of kidney (principal); N15.9 Renal tubulo-interstitial disease, unspecified; Z90.49 Acquired absence of other specified parts of digestive tract

== ENCOUNTER → 2022-07-29 | Outpatient (CLI) | payer OTHER ==
[~2022-07-29] MED LIST changes: -ONDANSETRON HYDR4 M1 PO
[2022-07-29 07:44] LABS: CHOLESTEROL 119 mg/dL (<200); LDL CHOLESTEROL 51 mg/dL (9-159); TRIGLYCERIDES 92 mg/dl (<150)
== END | disposition home or self-care (01) ==
LOC: LAB 07:02
PROVIDERS: ATTEND Nurse Practitioner Family
DX: N15.9 Renal tubulo-interstitial disease, unspecified (principal)

== ENCOUNTER 2022-08-03 08:11 | Emergency (ER) | payer OTHER ==
[~2022-08-03] VITALS: Ht 170.1 cm; Wt 81.6 kg
[2022-08-03 08:30] VITALS: BP 129/73
[2022-08-03 09:12] LABS: BASO % 0.3 % (0.0-1.0); EOS # 0.1 10*3/uL (0.0-0.4); EOS % 0.7 % (1.0-4.0); HEMATOCRIT 40.7 % (37.0-47.0); LYMPH # 1.3 10*3/uL (1.3-4.4); LYMPH % 12.6 % (27.0-41.0); MEAN CELL VOLUME 91.5 fl (81.0-99.0); MEAN CORPUSCULAR HGB 30.6 pg (27.0-31.0); MEAN CORPUSCULAR HGB CONC 33.4 g/dl (33.0-37.0); MEAN PLATELET VOLUME 9.5 fl (9.6-12.3); MONO # 0.3 10*3/uL (0.1-1.0); MONO % 3.3 % (3.0-9.0); NEUT # 8.6 10*3/uL (2.3-7.9); NEUT % 82.8 % (47.0-73.0); PLATELET COUNT AUTOMATED 277 10*3/uL (130-400); RED BLOOD COUNT 4.45 10*6/uL (4.10-5.10); RED CELL DISTRI WIDTH 12.9 % (0-14.5); WHITE BLOOD COUNT 10.3 10*3/uL (4.8-10.8)
[2022-08-03 09:28] LABS: BILIRUBIN Negative (Negative); BLOOD Negative (Negative); CLARITY Clear (Clear); COLOR Dark Yellow (Yellow); GLUCOSE 3+ (Negative); KETONE 2+ (Negative); LEUKO ESTERASE Negative (Negative); NITRITE Negative (Negative); PH 5.5 (4.5-8.0); SPECIFIC GRAVITY >= 1.030 (1.001-1.030)
[2022-08-03 09:40] LABS: ALKALINE PHOSPHATASE 82 U/L (46-116); BUN 15 mg/dl (9-23); CHLORIDE 103 mmol/L (98-107); SGPT/ALT 37 U/L (10-49); TOTAL PROTEIN 7.9 gm/dL (6.0-8.0)
[2022-08-03 09:42] LABS: WBC 0-2 wbc/hpf (0-5)
[2022-08-03 09:43] LABS: BACTERIA TRACE; MUCOUS 1+
[2022-08-03] MEDS ORDERED: ONDANSETRON HYDR4 M1 PO (12:33)
== END 2022-08-03 12:54 | disposition home or self-care (01) ==
LOC: ED 08:11
PROVIDERS: Internal Medicine
DX: K52.9 Noninfective gastroenteritis and colitis, unspecified (principal); Z79.899 Other long term (current) drug therapy; Z90.49 Acquired absence of other specified parts of digestive tract; Z98.890 Other specified postprocedural states

== ENCOUNTER → 2022-08-20 | Outpatient (CLI) | payer OTHER ==
[~2022-08-20] MED LIST changes: +ONDANSETRON HYDR4 M1 PO
== END | disposition home or self-care (01) ==
LOC: MAMMO 01:35
PROVIDERS: ATTEND Nurse Practitioner Women's Health
DX: Z12.31 Encounter for screening mammogram for malignant neoplasm of breast (principal); N64.9 Disorder of breast, unspecified; N63.11 Unspecified lump in the right breast, upper outer quadrant

== ENCOUNTER → 2022-08-26 | Outpatient (CLI) | payer OTHER ==
[2022-08-26 10:34] LABS: BILIRUBIN Negative (Negative); BLOOD Negative (Negative); CLARITY Cloudy (Clear); COLOR Yellow (Yellow); GLUCOSE 2+ (Negative); KETONE Trace (Negative); LEUKO ESTERASE 1+ (Negative); NITRITE Negative (Negative); SPECIFIC GRAVITY >= 1.030 (1.001-1.030)
[2022-08-26 10:56] LABS: ALKALINE PHOSPHATASE 83 U/L (46-116); BUN 15 mg/dl (9-23); CHLORIDE 104 mmol/L (98-107); POTASSIUM 4.2 mmol/L (3.4-5.1); SGPT/ALT 49 U/L (10-49); TOTAL PROTEIN 7.5 gm/dL (6.0-8.0)
[2022-08-26 10:57] LABS: EPITHELIAL CELLS 16-20; WBC 21-30 wbc/hpf (0-5)
[2022-08-26 10:58] LABS: BACTERIA 3+; MUCOUS 1+; YEAST 1+
[2022-08-31 15:07] LABS: INSULIN ANTIBODIES <5.0 uU/mL (.)
== END | disposition home or self-care (01) ==
LOC: LAB 10:07
PROVIDERS: ATTEND Nurse Practitioner Primary Care
DX: E11.43 Type 2 diabetes mellitus with diabetic autonomic (poly)neuropathy (principal); N30.00 Acute cystitis without hematuria

== ENCOUNTER → 2023-01-19 | Outpatient (CLI) | payer OTHER ==
[2023-01-19 09:57] LABS: BASO % 0.4 % (0.0-1.0); EOS # 0.2 10*3/uL (0.0-0.4); EOS % 2.3 % (1.0-4.0); LYMPH # 1.8 10*3/uL (1.3-4.4); LYMPH % 22.4 % (27.0-41.0); MEAN CELL VOLUME 90.7 fl (81.0-99.0); MEAN CORPUSCULAR HGB 30.8 pg (27.0-31.0); MEAN PLATELET VOLUME 9.6 fl (9.6-12.3); MONO # 0.4 10*3/uL (0.1-1.0); NEUT # 5.5 10*3/uL (2.3-7.9); NEUT % 69.5 % (47.0-73.0); PLATELET COUNT AUTOMATED 301 10*3/uL (130-400); RED BLOOD COUNT 4.41 10*6/uL (4.10-5.10); RED CELL DISTRI WIDTH 12.3 % (0-14.5); WHITE BLOOD COUNT 7.9 10*3/uL (4.8-10.8)
[2023-01-19 10:22] LABS: ALKALINE PHOSPHATASE 95 U/L (46-116); BUN 13 mg/dl (9-23); CHLORIDE 107 mmol/L (98-107); CHOLESTEROL 131 mg/dL (<200); LDL CHOLESTEROL 66 mg/dL (9-159); POTASSIUM 4.5 mmol/L (3.4-5.1); SGPT/ALT 28 U/L (5-49); TOTAL PROTEIN 7.2 gm/dL (6.0-8.0); TRIGLYCERIDES 76 mg/dl (<150)
[2023-01-19 10:43] LABS: URINE CREATININE RANDOM 77.37 mg/dL
== END | disposition home or self-care (01) ==
LOC: LAB 09:10
PROVIDERS: ATTEND Nurse Practitioner Primary Care
DX: E11.43 Type 2 diabetes mellitus with diabetic autonomic (poly)neuropathy (principal); E61.1 Iron deficiency; E55.9 Vitamin D deficiency, unspecified; E78.2 Mixed hyperlipidemia

== ENCOUNTER → 2023-07-20 | Outpatient (CLI) | payer OTHER | END | disposition home or self-care (01) | LOC: LAB 13:16 → MAMMO 14:00 | PROVIDERS: ATTEND Nurse Practitioner Women's Health | DX: Z12.31 Encounter for screening mammogram for malignant neoplasm of breast (principal); N91.2 Amenorrhea, unspecified ==

== ENCOUNTER → 2023-07-30 | Outpatient (CLI) | payer OTHER | LOC: WOUNDCARE 03:19 | PROVIDERS: ATTEND Nurse Practitioner Family | DX: S80.821A Blister (nonthermal), right lower leg, initial encounter (principal); E11.621 Type 2 diabetes mellitus with foot ulcer; L97.812 Non-pressure chronic ulcer of other part of right lower leg with fat layer exposed; I10 Essential (primary) hypertension; G47.00 Insomnia, unspecified; F41.9 Anxiety disorder, unspecified; F32.A Depression, unspecified; Z90.49 Acquired absence of other specified parts of digestive tract; Z89.411 Acquired absence of right great toe; Z89.421 Acquired absence of other right toe(s); Z79.4 Long term (current) use of insulin; Z79.899 Other long term (current) drug therapy; X58.XXXA Exposure to other specified factors, initial encounter; Y93.89 Activity, other specified; Y92.89 Other specified places as the place of occurrence of the external cause; Y99.8 Other external cause status ==

== ENCOUNTER → 2023-08-06 | Outpatient (CLI) | payer OTHER | LOC: WOUNDCARE 02:05 | PROVIDERS: ATTEND Nurse Practitioner Family | DX: S80.821D Blister (nonthermal), right lower leg, subsequent encounter (principal); E11.621 Type 2 diabetes mellitus with foot ulcer; L97.812 Non-pressure chronic ulcer of other part of right lower leg with fat layer exposed; L89.892 Pressure ulcer of other site, stage 2; I10 Essential (primary) hypertension; G47.00 Insomnia, unspecified; F41.9 Anxiety disorder, unspecified; F32.A Depression, unspecified; Z90.49 Acquired absence of other specified parts of digestive tract; Z89.411 Acquired absence of right great toe; Z89.421 Acquired absence of other right toe(s); Z79.4 Long term (current) use of insulin; Z79.899 Other long term (current) drug therapy; X58.XXXD Exposure to other specified factors, subsequent encounter ==

== ENCOUNTER → 2023-08-19 | Outpatient (CLI) | payer OTHER | END | disposition home or self-care (01) | LOC: WOUNDCARE 02:09 | PROVIDERS: ATTEND Nurse Practitioner Family | DX: L89.892 Pressure ulcer of other site, stage 2 (principal); E11.622 Type 2 diabetes mellitus with other skin ulcer; L97.812 Non-pressure chronic ulcer of other part of right lower leg with fat layer exposed; E11.65 Type 2 diabetes mellitus with hyperglycemia; I10 Essential (primary) hypertension; G47.00 Insomnia, unspecified; F41.9 Anxiety disorder, unspecified; F32.A Depression, unspecified; Z90.49 Acquired absence of other specified parts of digestive tract; Z89.411 Acquired absence of right great toe; Z89.421 Acquired absence of other right toe(s); Z79.4 Long term (current) use of insulin; Z79.899 Other long term (current) drug therapy ==

== ENCOUNTER → 2024-01-03 | Outpatient (CLI) | payer OTHER ==
[~2024-01-03] MED LIST changes: +ALDACTONE25 M1 PO; +LIPITOR40 MG PO; +LYUMJEV KW100 UNIT/1 SQ; +METOPROLOL SUCC25 M2 PO; +TRAZODONE100 MG PO
[2024-01-03 15:32] LABS: BUN 26 mg/dl (9-23); CHLORIDE 105 mmol/L (98-107); CPK 140 U/L (34-171); POTASSIUM 4.3 mmol/L (3.4-5.1)
== END | disposition home or self-care (01) ==
LOC: LAB 14:55
PROVIDERS: ATTEND Nurse Practitioner Primary Care
DX: I51.7 Cardiomegaly (principal); R06.02 Shortness of breath; R07.89 Other chest pain; R60.9 Edema, unspecified; R01.1 Cardiac murmur, unspecified

== ENCOUNTER 2024-01-04 15:04 | Observation (INO) | payer OTHER ==
[~2024-01-04] VITALS: Ht 170.2 cm; Wt 102.5 kg
[~2024-01-04 15:04] MED LIST changes: -ALDACTONE25 M1 PO; -LIPITOR40 MG PO; -LYUMJEV KW100 UNIT/1 SQ; -METOPROLOL SUCC25 M2 PO; -TRAZODONE100 MG PO
[2024-01-04 15:14] VITALS: BP 138/51
[2024-01-04] MEDS ORDERED: LYUMJEV KW100 UNIT/1 SQ (15:16)
[2024-01-04 16:00] VITALS: BP 134/56
[2024-01-04] MEDS ORDERED: ASPIRIN, CHEWABLE 81 MG TAB PO ONE (16:25)
[2024-01-04 16:46] LABS: BASO % 0.4 % (0.0-1.0); EOS # 0.4 10*3/uL (0.0-0.4); EOS % 3.9 % (1.0-4.0); HEMATOCRIT 39.2 % (37.0-47.0); LYMPH # 2.5 10*3/uL (1.3-4.4); LYMPH % 27.7 % (27.0-41.0); MEAN CORPUSCULAR HGB CONC 31.9 g/dl (33.0-37.0); MEAN PLATELET VOLUME 9.3 fl (9.6-12.3); MONO # 0.6 10*3/uL (0.1-1.0); MONO % 6.3 % (3.0-9.0); NEUT # 5.6 10*3/uL (2.3-7.9); NEUT % 61.3 % (47.0-73.0); PLATELET COUNT AUTOMATED 295 10*3/uL (130-400); RED BLOOD COUNT 4.17 10*6/uL (4.10-5.10); RED CELL DISTRI WIDTH 13.5 % (0-14.5); WHITE BLOOD COUNT 9.1 10*3/uL (4.8-10.8)
[2024-01-04 16:57] LABS: ACT PARTIAL THROMBO TIME 25.7 SECONDS (20.0-32.1)
[2024-01-04 17:09] LABS: POTASSIUM 4.7 mmol/L (3.4-5.1); TOTAL PROTEIN 7.4 gm/dL (6.0-8.0)
[2024-01-04] MEDS ORDERED: Magnesium Hydroxide 30 ML UDC PO PRN (18:30)
[2024-01-04] MEDS ORDERED: Ondansetron Hydrochloride 4 MG/2 ML VIAL IV PRN (18:30)
[2024-01-04] MEDS ORDERED: ACETAMINOPHEN 650 MG SUPP R PRN (18:30)
[2024-01-04] MEDS ORDERED: ACETAMINOPHEN 325 MG TAB PO PRN (18:30)
[2024-01-04] MEDS ORDERED: Acetaminophen/Hydrocodone 5 MG/325 MG TABLET PO PRN (18:30)
[2024-01-04] MEDS ORDERED: BISACODYL 10 MG SUPP R PRN (18:30)
[2024-01-04] MEDS ORDERED: MORPHINE Sulfate 2 MG/ML SYR IV PRN (18:30)
[2024-01-04] MEDS ORDERED: BISACODYL 5 MG TAB PO PRN (18:30)
[2024-01-04] MEDS ORDERED: ATORVASTATIN CALCIUM 40 MG TABLET PO SCH (20:40)
[2024-01-04] MEDS ORDERED: DEXTROSE 10 % IN WATER 250 ML IV PRN (20:55)
[2024-01-04] MEDS ORDERED: GABAPENTIN 800 MG TAB PO SCH (22:00)
[2024-01-04] MEDS ORDERED: HEPARIN SODIUM 5,000 UNIT/ML VIAL SC SCH (22:00)
[2024-01-04] MEDS ORDERED: INSULIN LISPRO 1 UNIT/0.01 ML SQ SCH (22:00)
[2024-01-04 22:42] VITALS: BP 138/83
[2024-01-04 23:25] VITALS: BP 134/56
[2024-01-04] MEDS ORDERED: METOPROLOL SUCC25 M2 PO (23:44)
[2024-01-04] MEDS ORDERED: LIPITOR40 MG PO (23:44)
[2024-01-04] MEDS ORDERED: TRAZODONE100 MG PO (23:45)
[2024-01-04] MEDS ORDERED: ALDACTONE25 M1 PO (23:45)
[2024-01-05] MEDS ORDERED: SODIUM CHLORIDE 0.9% 500 ML IV ONE (04:00)
[2024-01-05] MEDS ORDERED: SODIUM CHLORIDE 0.9% 1,000 ML IV ONE (04:05)
[2024-01-05 06:30] LABS: BASO % 0.5 % (0.0-1.0); EOS # 0.4 10*3/uL (0.0-0.4); EOS % 4.7 % (1.0-4.0); LYMPH # 2.1 10*3/uL (1.3-4.4); LYMPH % 28.6 % (27.0-41.0); MEAN CELL VOLUME 93.8 fl (81.0-99.0); MEAN CORPUSCULAR HGB 29.6 pg (27.0-31.0); MEAN CORPUSCULAR HGB CONC 31.6 g/dl (33.0-37.0); MEAN PLATELET VOLUME 9.4 fl (9.6-12.3); MONO # 0.5 10*3/uL (0.1-1.0); NEUT # 4.3 10*3/uL (2.3-7.9); NEUT % 58.7 % (47.0-73.0); PLATELET COUNT AUTOMATED 257 10*3/uL (130-400); RED BLOOD COUNT 4.05 10*6/uL (4.10-5.10); RED CELL DISTRI WIDTH 13.3 % (0-14.5); WHITE BLOOD COUNT 7.4 10*3/uL (4.8-10.8)
[2024-01-05] MEDS ORDERED: Regadenoson 0.4 MG/5 ML SYR IV ONE (07:14)
[2024-01-05 07:18] LABS: FREE T4 0.89 ng/dl (0.89-1.76); POTASSIUM 4.2 mmol/L (3.4-5.1)
[2024-01-05 08:00] VITALS: BP 114/50
[2024-01-05] MEDS ORDERED: CITALOPRAM 20 MG TAB PO SCH (10:00)
[2024-01-05] MEDS ORDERED: Enoxaparin Sodium 40 MG/0.4 ML SYR SC SCH (10:00)
[2024-01-05] MEDS ORDERED: Folic Acid/Vitamin B Complex 1 TAB TAB PO SCH (10:00)
[2024-01-05] MEDS ORDERED: Insulin Glargine, Recombinan 1 UNIT/0.01 ML SC SCH (10:00)
[2024-01-05] MEDS ORDERED: ASPIRIN ENTERIC COATED 81 MG TAB PO SCH (10:00)
[2024-01-05 12:00] VITALS: BP 101/50
== END 2024-01-05 16:16 | disposition home or self-care (01) ==
LOC: ED 15:04 → EDHOLD 18:06 → 4E 22:24
PROVIDERS: Nurse Practitioner; Student in an Organized Health Care Education/Training Program; ADMIT Internal Medicine; ATTEND Internal Medicine
DX: I20.0 Unstable angina (principal); N17.0 Acute kidney failure with tubular necrosis; E87.1 Hypo-osmolality and hyponatremia; E10.65 Type 1 diabetes mellitus with hyperglycemia; I10 Essential (primary) hypertension; E78.5 Hyperlipidemia, unspecified; F32.4 Major depressive disorder, single episode, in partial remission; F41.9 Anxiety disorder, unspecified; Z72.89 Other problems related to lifestyle; Z79.899 Other long term (current) drug therapy

== ENCOUNTER → 2024-03-07 | Outpatient (CLI) | payer OTHER ==
[~2024-03-07] MED LIST changes: +ALDACTONE25 M1 PO; +LIPITOR40 MG PO; +LYUMJEV KW100 UNIT/1 SQ; +METOPROLOL SUCC25 M2 PO; +TRAZODONE100 MG PO
== END | disposition home or self-care (01) ==
LOC: US 11:54
PROVIDERS: ATTEND Podiatrist
DX: R60.0 Localized edema (principal); M79.605 Pain in left leg

== ENCOUNTER → 2024-03-09 | Outpatient (CLI) | payer OTHER ==
[2024-03-09 09:05] LABS: BASO % 0.3 % (0.0-1.0); EOS # 0.3 10*3/uL (0.0-0.4); EOS % 4.8 % (1.0-4.0); HEMATOCRIT 40.5 % (37.0-47.0); MEAN CELL VOLUME 91.4 fl (81.0-99.0); MEAN CORPUSCULAR HGB 29.6 pg (27.0-31.0); MEAN CORPUSCULAR HGB CONC 32.3 g/dl (33.0-37.0); MEAN PLATELET VOLUME 8.9 fl (9.6-12.3); MONO # 0.4 10*3/uL (0.1-1.0); MONO % 5.8 % (3.0-9.0); NEUT # 4.5 10*3/uL (2.3-7.9); NEUT % 63.2 % (47.0-73.0); PLATELET COUNT AUTOMATED 291 10*3/uL (130-400); RED BLOOD COUNT 4.43 10*6/uL (4.10-5.10); WHITE BLOOD COUNT 7.1 10*3/uL (4.8-10.8)
[2024-03-09 09:18] LABS: BILIRUBIN Negative (Negative); BLOOD Negative (Negative); CLARITY Clear (Clear); COLOR Yellow (Yellow); GLUCOSE Negative (Negative); KETONE Negative (Negative); LEUKO ESTERASE 2+ (Negative); NITRITE Negative (Negative); PH 5.5 (4.5-8.0)
[2024-03-09 09:29] LABS: BACTERIA 2+; EPITHELIAL CELLS 21-30; RBC 0-2 rbc/hpf (0-2); WBC 16-20 wbc/hpf (0-5)
[2024-03-09 09:30] LABS: MUCOUS 1+
[2024-03-09 09:38] LABS: ALKALINE PHOSPHATASE 97 U/L (46-116); BUN 22 mg/dl (9-23); CHLORIDE 107 mmol/L (98-107); SGPT/ALT 31 U/L (5-49); TOTAL PROTEIN 7.2 gm/dL (6.0-8.0)
[2024-03-09 09:41] LABS: VITAMIN D, 25-HYDROXY 32.4 ng/mL (30-100)
== END | disposition home or self-care (01) ==
LOC: LAB 07:50 → US 08:30
PROVIDERS: ATTEND Internal Medicine Nephrology
DX: N20.0 Calculus of kidney (principal); N18.31 Chronic kidney disease, stage 3a; E53.9 Vitamin B deficiency, unspecified

== ENCOUNTER → 2024-04-13 | Outpatient (CLI) | payer OTHER | END | disposition home or self-care (01) | LOC: CT 08:00 | PROVIDERS: ATTEND Urology | DX: N20.0 Calculus of kidney (principal); N26.1 Atrophy of kidney (terminal); D35.02 Benign neoplasm of left adrenal gland ==

== ENCOUNTER → 2024-05-09 | Outpatient (CLI) | payer OTHER ==
[2024-05-09 14:57] LABS: BASO # 0.1 10*3/uL (0.0-0.1); BASO % 0.7 % (0.0-1.0); EOS # 0.3 10*3/uL (0.0-0.4); EOS % 3.4 % (1.0-4.0); HEMATOCRIT 39.1 % (37.0-47.0); MEAN CELL VOLUME 89.7 fl (81.0-99.0); MEAN CORPUSCULAR HGB 28.9 pg (27.0-31.0); MEAN CORPUSCULAR HGB CONC 32.2 g/dl (33.0-37.0); MEAN PLATELET VOLUME 9.3 fl (9.6-12.3); MONO # 0.5 10*3/uL (0.1-1.0); MONO % 5.9 % (3.0-9.0); NEUT # 4.9 10*3/uL (2.3-7.9); NEUT % 63.1 % (47.0-73.0); PLATELET COUNT AUTOMATED 272 10*3/uL (130-400); RED BLOOD COUNT 4.36 10*6/uL (4.10-5.10); RED CELL DISTRI WIDTH 13.1 % (0-14.5); WHITE BLOOD COUNT 7.7 10*3/uL (4.8-10.8)
[2024-05-09 15:19] LABS: ALKALINE PHOSPHATASE 104 U/L (46-116); BUN 19 mg/dl (9-23); CHLORIDE 106 mmol/L (98-107); CHOLESTEROL 154 mg/dL (<200); LDL CHOLESTEROL 88 mg/dL (9-159); POTASSIUM 4.3 mmol/L (3.4-5.1); SGPT/ALT 34 U/L (5-49); TOTAL PROTEIN 7.1 gm/dL (6.0-8.0); TRIGLYCERIDES 86 mg/dl (<150)
[2024-05-10 15:07] LABS: ALDOLASE 5.7 U/L (3.3-10.3)
== END | disposition home or self-care (01) ==
LOC: LAB 14:06
PROVIDERS: Nurse Practitioner Family; ATTEND Urology
DX: E11.9 Type 2 diabetes mellitus without complications (principal); E78.5 Hyperlipidemia, unspecified; Z79.4 Long term (current) use of insulin; D35.00 Benign neoplasm of unspecified adrenal gland; E55.9 Vitamin D deficiency, unspecified

== ENCOUNTER → 2024-05-11 | Outpatient (CLI) | payer OTHER ==
[2024-05-16 01:06] LABS: METANEPHRINE, PLASMA <25.0 pg/mL (0.0-88.0); NORMETANEPHRINE, PLASMA 59.1 pg/mL (0.0-218.9)
[2024-05-17 00:06] LABS: NORMETANEPHRINE URINE 177 ug/L (Undefined); URINE METANEPHRINE 43 ug/L (Undefined); URINE METANEPHRINE, 24 HR 43 ug/24 hr (36-209)
== END | disposition home or self-care (01) ==
LOC: LAB 12:26
PROVIDERS: ATTEND Urology
DX: D35.00 Benign neoplasm of unspecified adrenal gland (principal)

== ENCOUNTER → 2024-06-23 | Outpatient (CLI) | payer OTHER | END | disposition home or self-care (01) | LOC: CT 13:50 | PROVIDERS: ATTEND Podiatrist | DX: S82.392K Other fracture of lower end of left tibia, subsequent encounter for closed fracture with nonunion (principal); M79.89 Other specified soft tissue disorders; X58.XXXD Exposure to other specified factors, subsequent encounter ==

== ENCOUNTER → 2024-08-01 | Outpatient (CLI) | payer OTHER ==
[2024-08-01 15:15] LABS: BASO % 0.5 % (0.0-1.0); EOS # 0.3 10*3/uL (0.0-0.4); HEMATOCRIT 38.4 % (37.0-47.0); MEAN CELL VOLUME 92.1 fl (81.0-99.0); MEAN CORPUSCULAR HGB 29.5 pg (27.0-31.0); MEAN PLATELET VOLUME 9.7 fl (9.6-12.3); MONO # 0.5 10*3/uL (0.1-1.0); MONO % 5.2 % (3.0-9.0); NEUT # 6.3 10*3/uL (2.3-7.9); NEUT % 71.5 % (47.0-73.0); PLATELET COUNT AUTOMATED 277 10*3/uL (130-400); RED BLOOD COUNT 4.17 10*6/uL (4.10-5.10); RED CELL DISTRI WIDTH 13.7 % (0-14.5); WHITE BLOOD COUNT 8.8 10*3/uL (4.8-10.8)
[2024-08-01 15:43] LABS: POTASSIUM 4.4 mmol/L (3.4-5.1); TOTAL PROTEIN 7.1 gm/dL (6.0-8.0)
== END | disposition home or self-care (01) ==
LOC: LAB 14:24
PROVIDERS: ATTEND Nurse Practitioner Primary Care
DX: Z01.812 Encounter for preprocedural laboratory examination (principal); I49.9 Cardiac arrhythmia, unspecified; E11.43 Type 2 diabetes mellitus with diabetic autonomic (poly)neuropathy; E78.5 Hyperlipidemia, unspecified

== ENCOUNTER 2025-02-09 21:59 | Emergency (ER) | payer OTHER ==
[~2025-02-09] VITALS: Ht 170.2 cm; Wt 99.8 kg
[2025-02-09 22:06] VITALS: BP 144/57
[2025-02-09] MEDS ORDERED: SODIUM CHLORIDE 0.9% 1,000 ML IV ONE ×2 (22:15→22:47)
[2025-02-09] MEDS ORDERED: Ondansetron Hydrochloride 4 MG/2 ML VIAL IV ONE (22:20)
[2025-02-09 22:51] LABS: BASO # 0.0 10*3/uL (0.0-0.1); BASO % 0.3 % (0.0-1.0); EOS # 0.1 10*3/uL (0.0-0.4); EOS % 1.1 % (1.0-4.0); MEAN CELL VOLUME 91.3 fl (81.0-99.0); MEAN CORPUSCULAR HGB 29.0 pg (27.0-31.0); MEAN PLATELET VOLUME 9.4 fl (9.6-12.3); MONO # 0.6 10*3/uL (0.1-1.0); MONO % 5.3 % (3.0-9.0); NEUT # 8.2 10*3/uL (2.3-7.9); NEUT % 77.9 % (47.0-73.0); NUCLEATED RED BLOOD CELL 0.0 % (0.0-0.0); NUCLEATED RED BLOOD CELL 0.0 10*3/uL (0.0-0.0); PLATELET COUNT AUTOMATED 314 10*3/uL (130-400); RED CELL DISTRI WIDTH 13.9 % (0-14.5)
[2025-02-09 22:55] LABS: BILIRUBIN Negative (Negative); BLOOD 2+ (Negative); CLARITY Clear (Clear); COLOR Yellow (Yellow); KETONE Trace (Negative); LEUKO ESTERASE 1+ (Negative); NITRITE Negative (Negative); PH 5.5 (4.5-8.0); SPECIFIC GRAVITY 1.025 (1.001-1.030); UROBILINOGEN 1.0 E.U./dl (0.0-1.0)
[2025-02-09 23:12] LABS: BUN 17.0 mg/dl (9-23); SGPT/ALT 24.0 U/L (5-49)
[2025-02-09 23:13] LABS: BACTERIA TRACE; RBC 16-20 rbc/hpf (0-2)
[2025-02-09] MEDS ORDERED: PERCOCET 5-3251 EACH PO ×2 (23:30→23:34)
[2025-02-09] MEDS ORDERED: Ondansetron4 MG PO (23:30)
== END 2025-02-09 23:58 | disposition home or self-care (01) ==
LOC: ED 21:59
PROVIDERS: Emergency Medicine
DX: N13.2 Hydronephrosis with renal and ureteral calculous obstruction (principal); R11.2 Nausea with vomiting, unspecified; Z87.442 Personal history of urinary calculi; Z88.6 Allergy status to analgesic agent; Z91.040 Latex allergy status; Z79.899 Other long term (current) drug therapy; Z90.49 Acquired absence of other specified parts of digestive tract; Z98.890 Other specified postprocedural states